=== PATIENT | female | born 1970 | race Caucasian/White ===

== ENCOUNTER → 2022-05-06 14:43 | Outpatient (BNVA) | payer OTHER, SELFPAY | PROVIDERS: PCP Internal Medicine; Visit Provider Nurse Practitioner Family | DX: M79.7 Fibromyalgia (principal); M19.012 Primary osteoarthritis, left shoulder; R76.8 Other specified abnormal immunological findings in serum; L85.3 Xerosis cutis | CPT/HCPCS: 99212 ==

== ENCOUNTER 2022-10-28 09:10 | Outpatient (AMB) | payer OTHER, SELFPAY ==
[2022-10-28 09:13] VITALS: BP 116/74; PULSE 102; TEMP 36.3; O2SAT 95; BMI 38.3
--- NOTE | 2022-10-28 09:13 | A.OFFVIS_ITS ---
Intake Vital Signs 10/28/22 09:13 Height 5 ft 2 in Weight 209 lb 7.026 oz BMI 38.3 BP 116/74 Blood Pressure Location Rt brachial Position Sitting Pulse 102 H Pulse Source Pulse Oximeter Temp 97.3 F Temp Source Skin Pulse Oximetry (%) 95 Intake Visit Reasons: fibromyalgia Intake Note: Pt seen today for FM follow up. States she has pain everywhere Curing Room Worker Required: No Accompanied by: Daughter Allergies glipizide Allergy (Intermediate, Verified 10/28/22 09:21) low blood sugar pregabalin [From Lyrica] Allergy (Intermediate, Verified 10/28/22 09:21) Irritable Medication List - Last Reconciled 10/28/22 by Errol Roach MD amitriptyline 25 mg PO BEDTIME atorvastatin 10 mg PO DAILY carvedilol 12.5 mg PO BID cholecalciferol (vitamin D3) 50 mcg PO DAILY citalopram 10 mg PO DAILY empagliflozin (Jardiance) 25 mg PO DAILY hydroxyzine HCl 25 mg PO BID PRN ibuprofen 600 mg PO Q8H PRN metformin ER 500 mg PO BID tirzepatide (Mounjaro) mg subcut valsartan 160 mg PO DAILY HPI HPI Comments History of Present Illness Details This is a 51-year-old female who presents for evaluation of positive KIA. She was previously evaluated by Maya Dailey and Dr. Chilel for a positive KIA in the setting of diffuse pain. There was no evidence of an autoimmune rheumatic disease. Sub serologies were negative. Patient states that she has diffuse pain everywhere. Pain in her shoulders, neck, back, chest, legs. She has pain, swelling and stiffness of both hands lasting 1 hour in the morning. She has a constant skin rash on her arms and forearms bilaterally, worse on the left. It is worse when exposed to sun. But it is present even in wintertime. She applies sunscreen all the time. Gets some hair loss. Denies any blood or frothy urine. Three days ago she developed a diffuse itchy skin rash on her lower extremities which resolved with Benadryl. [facility] Medical History (Updated 10/28/22 @ 10:03 by Errol Roach MD) Myositis SLE (systemic lupus erythematosus) Dry skin dermatitis Diabetes Hypertension Hyperlipemia Morbid obesity DJD (degenerative joint disease), lumbar GERD (gastroesophageal reflux disease) Abnormal large bowel motility Swallowing difficulty Globus sensation Fatty liver Hepatomegaly Palpitations SOB (shortness of breath) Fibromyalgia Surgical History H/O: hysterectomy History of cholecystectomy History of Family History Mother Breast cancer Diabetes Hypertension Anxiety and depression Fibromyalgia Thyroid cancer Social History Alcohol intake: current Alcohol intake frequency: does not drink Patient Tobacco Use Status: Never used Tobacco Review of Systems Const Reports fatigue and Reports weakness Musc Reports myalgias, Reports arthralgias, Reports joint swelling and Reports stiffness Skin/Breast Reports dry skin, Reports alopecia, Reports pruritus, Reports erythema and R eports rash Neuro Reports weakness Endo Reports fatigue Physical Exam Vital Signs: Last Vital Signs Temp 97.3 F 10/28/22 09:13 Pulse 102 H 10/28/22 09:13 BP 116/74 10/28/22 09:13 Pulse Ox 95 10/28/22 09:13 BMI result Body Mass Index 38.3 Const General: cooperative, healthy appearing and comfortable Nutritional Appearance: obese Orientation/consciousness: patient oriented x3 Limitations: no limitations HEENT Head: Yes normocephalic and Yes atraumatic Mouth: moist mucous membranes Resp Effort & Inspection: normal respiratory effort and able to speak in complete sentences Auscultation: clear to auscultation bilaterally Cardio Rate: regular rate Rhythm: regular rhythm GI Inspection: No distended Palpation (GI): Soft to palpation and nontender Skin Other: Erythematous skin rash on the extensor surface of right arm and forearm, more severe in the left arm Neuro General: patient oriented x3 Extrem Other: Diffuse fibromyalgia tender points Tenderness and pain in both wrists, MCPs and PIPs. No D IP pain. Normal nailfold capillaroscopy Bilateral trochanter bursa written Results Reviewed Results Reviewed: Labs [id number] CCP negative KIA 1-320 homogeneous 1:640 homogenous Anti Spears/HEEL ROOM SUPERVISOR SSA/SSB/dsDNA/AMA/RF/Scl 70/TPO all negative? Lyme screen negative? Anti parietal cell antibody 35 (<20) Anti smooth muscle antibody negative? C3/C4 negative CRP normal Assessment & Plan Assessment & Plan (1) Elevated antinuclear antibody (KIA) level: Code(s): R76.8 - Other specified abnormal immunological findings in serum Plan: This is a 51-year-old female who presents for evaluation of a positive KIA. Previous evaluation was unrevealing. Will repeat comprehensive serology to screen for underlying autoimmune rheumatic disease. Will also add a myositis panel. (2) Fibromyalgia: Code(s): M79.7 - Fibromyalgia Plan: Will discuss further next visit (3) Rash and nonspecific skin eruption: Code(s): R21 - Rash and other nonspecific skin eruption Plan: Advised patient to get evaluated by a software engineer backend. Consider a skin biopsy. Plan I spent 46 minutes reviewing patient's chart, evaluating patient, ordering diagnostic workup, counseling patient and documenting in the chart Orders: Orders Complete Blood Count Auto Diff Today M32.9 - Systemic lupus erythematosus, unspecified Comprehensive Met. Panel Today M32.9 - Systemic lupus erythematosus, unspecified C Reactive Protein Today M32.9 - Systemic lupus erythematosus, unspecified Immunofixation Pnl, Serum Today M32.9 - Systemic lupus erythematosus, unspecified Protein Electrophoresis, Serum Today M32.9 - Systemic lupus erythematosus, unspecified Complement C3 Today M32.9 - Systemic lupus erythematosus, unspecified Protein Creatinine Ratio, Ur Today M32.9 - Systemic lupus erythematosus, unspecified UA w Microscopic Today M32.9 - Systemic lupus erythematosus, unspecified MSA Panel Extended Today M60.9 - Myositis, unspecified Erythrocyte Sedimentation Rate Today M32.9 - Systemic lupus erythematosus, unspecified Anti Extractable Nuclear Ag Today M32.9 - Systemic lupus erythematosus, unspecified Anti DNA DS Antibody Today M32.9 - Systemic lupus erythematosus, unspecified Sjogren's Antibodies Today M32.9 - Systemic lupus erythematosus, unspecified Coding Level of Care Code Est Pt Level 5 (44680) Diagnoses Elevated antinuclear antibody (KIA) level R76.8 Fibromyalgia M79.7 Rash and nonspecific skin eruption R21
== END 2022-10-28 09:53 | disposition home or self-care (01) ==
PROVIDERS: PCP Internal Medicine; Referring Provider Internal Medicine; Visit Provider Student in an Organized Health Care Education/Training Program
DX: M79.7 Fibromyalgia (principal); R76.8 Other specified abnormal immunological findings in serum; R21 Rash and other nonspecific skin eruption
CPT/HCPCS: 99215

== ENCOUNTER → 2022-10-28 09:10 | Outpatient (BNVA) | payer OTHER, SELFPAY | PROVIDERS: PCP Internal Medicine; Referring Provider Internal Medicine; Visit Provider Student in an Organized Health Care Education/Training Program | DX: R76.8 Other specified abnormal immunological findings in serum (principal); M79.7 Fibromyalgia; R21 Rash and other nonspecific skin eruption | CPT/HCPCS: 99212 ==

== ENCOUNTER 2022-12-02 11:05 | Outpatient (REF) | payer OTHER, SELFPAY ==
[2022-12-02 13:04] LABS: MANUAL DIFF FLAG NO
[2022-12-02 13:26] LABS: Basophils Absolute Auto 0.1 X10*3/uL (0.0-0.2); Basophils Percent Auto 0.8 % (0-2); Eosinophils Absolute Auto 0.5 X10*3/uL (0.0-0.4); Eosinophils Percent Auto 6.6 % (0-4); Hematocrit 46.5 % (37.0-47.0); Imm Gran Abs Auto 0.01 X10*3/uL (0.00-0.03); Imm Gran Pct Auto 0.1 % (0.0-0.4); Lymphocytes Absolute Auto 1.8 X10*3/uL (1.2-4.9); Lymphocytes Percent Auto 24.3 % (20-40); Mean Corpuscular HGB Conc 32.3 g/dl (31.0-35.0); Mean Corpuscular Hemoglobin 28.5 pg (27.0-33.0); Mean Corpuscular Volume 88.2 fL (80.0-98.0); Mean Platelet Volume 10.2 fL (9.4-12.3); Monocytes Absolute Auto 0.5 X10*3/uL (0.1-1.2); Monocytes Percent Auto 6.5 % (2-11); Neutrophils Absolute Auto 4.7 x10*3/uL (2.0-8.3); Neutrophils Percent Auto 61.7 % (45-73); Platelet Count 334 X10*3/uL (160-400); Red Blood Count 5.27 X10*6/uL (4.20-5.50); Red Cell Distribution Width 14.3 % (11.0-16.0); White Blood Count 7.6 X10*3/uL (4.8-10.8)
[2022-12-02 13:29] LABS: Appearance Urine Cloudy; Color Urine Yellow; Glucose Urine UA >=1000 mg/dL (Negative); Leukocyte Esterase Urine Negative (Negative); Nitrite Urine Negative (Negative); Specific Gravity - Urine >= 1.030 (1.005-1.025); UMIC TRIGGER UA YES; Urine Blood Negative (Negative); Urine Ketones Negative (Negative); Urine Protein Negative (Neg-Trace)
[2022-12-02 13:33] LABS: Bacteria Urine 4+ (None Seen); Hyaline Casts Urine 0-2 /LPF (0-2); RBC Urine 0-2 /HPF (0-2); Squamous Epithelial Cell Urine >20 /HPF (0-2); WBC Urine 0-5 /HPF (0-5)
[2022-12-02 13:46] LABS: Alanine Aminotransferase 29 U/L (0-31); Albumin Level 4.3 g/dL (3.5-5.0); Alkaline Phosphatase 124 U/L (39-117); Anion Gap 15 (12-20); Aspartate Amino Transferase 21 U/L (5-31); Bilirubin Total 1.7 mg/dL (0.0-1.0); Blood Urea Nitrogen 13 mg/dL (9-16); C Reactive Protein 0.25 mg/dL (< or = 0.50); Calcium 9.5 mg/dL (8.4-10.2); Carbon Dioxide 20 mmol/L (22-29); Chloride 108 mmol/L (96-108); Estimated Glomerular Filt Rate > 60; Glucose Random 153 mg/dL (60-115); Sodium 139 mmol/L (135-145); Total Protein 7.3 g/dL (6.5-8.0)
[2022-12-02 14:07] LABS: Erythrocyte Sedimentation Rate 4 MM/HR (0-20)
[2022-12-02 14:11] LABS: Total Protein Urine Random < 7 mg/dL (<12)
[2022-12-03 11:19] LABS: Complement C3 187 mg/dL (83-193)
[2022-12-03 13:23] LABS: Anti DNA DS Antibody <1 IU/mL; Antibody to SS-A Antigen <1.0 NEG AI (<1.0 NEG); Antibody to SS-B Antigen <1.0 NEG AI (<1.0 NEG); SM/Ribonucleoprotein Ab <1.0 NEG AI (<1.0 NEG); Smith Protein <1.0 NEG AI (<1.0 NEG)
[2022-12-04 11:33] LABS: Prot Elec - Albumin 4.2 g/dL (3.8-4.8); Prot Elec - Alpha1 0.3 g/dL (0.2-0.3); Prot Elec - Alpha2 0.7 g/dL (0.5-0.9); Prot Elec - Beta 1 0.5 g/dL (0.4-0.6); Prot Elec - Beta 2 0.5 g/dL (0.2-0.5); Prot Elec - Gamma 0.9 g/dL (0.8-1.7)
[2022-12-06 09:34] LABS: IgA 271 mg/dL (47-310); IgG 970 mg/dL (600-1640); IgM 66 mg/dL (50-300)
[2022-12-12 17:59] LABS: Cytosolic 5'nuc 1A Ab IgG <5 Units; Ej Ab <11 SI (<11); HMGCR Ab IgG <2 CU (<20); Jo-1 Ab <11 SI (<11); MDA5 Ab <11 SI (<11); Mi-2 alpha Ab <11 SI (<11); Mi-2 beta Ab <11 SI (<11); NXP-2 (MJ) Ab <11 SI (<11); Oj Ab <11 SI (<11); Pl-12 Ab <11 SI (<11); Pl-7 Ab <11 SI (<11); SRP Ab <11 SI (<11); TIF1 gamma Ab <11 SI (<11)
== END 2022-12-02 11:06 | disposition home or self-care (01) ==
LOC: HO.HMGCLDS 11:05
PROVIDERS: PCP Internal Medicine; Visit Provider Student in an Organized Health Care Education/Training Program
DX: M32.9 Systemic lupus erythematosus, unspecified (principal)
CPT/HCPCS: 36415; 80053; 81001; 82570; 82784; 83516; 83520; 84156; 84165; 84182; 85025; 85652; 86140; 86160; 86225; 86235; 86334

== ENCOUNTER → 2022-12-03 11:29 | Outpatient (BNVA) | payer OTHER, SELFPAY | PROVIDERS: PCP Internal Medicine; Visit Provider Student in an Organized Health Care Education/Training Program ==

== ENCOUNTER 2022-12-24 11:27 | Outpatient (AMB) | payer OTHER, SELFPAY ==
[2022-12-24 11:40] VITALS: BP 120/62; PULSE 102; TEMP 36.8; O2SAT 95; BMI 37.3
--- NOTE | 2022-12-24 11:40 | MHC.OFFVIS ---
Intake Vital Signs 12/24/22 11:40 Height 5 ft 2 in Weight 203 lb 11.314 oz BMI 37.3 BP 120/62 Blood Pressure Location Rt brachial Position Sitting Pulse 102 H Pulse Source Pulse Oximeter Temp 98.2 F Temp Source Skin Pulse Oximetry (%) 95 Intake Visit Reasons: KIA +VE Intake Note: Pt presents today for follow up and test results. C/o increased pain, especially shoulders, arms, and knees. Mentions easy bruising everytime BP is taken. Automotive Project Engineer Required: Yes Automotive Project Engineer Name: Francisca [email or web address] Information Interpreted: clinical only Accompanied by: Self / Same As Patient Allergies glipizide Allergy (Intermediate, Verified 12/24/22 11:44) low blood sugar pregabalin [From Lyrica] Allergy (Intermediate, Verified 12/24/22 11:44) Irritable Medication List - Last Reconciled 12/24/22 by Errol Roach MD amitriptyline 25 mg PO BEDTIME atorvastatin 10 mg PO DAILY carvedilol 12.5 mg PO BID cholecalciferol (vitamin D3) 50 mcg PO DAILY citalopram 10 mg PO DAILY empagliflozin (Jardiance) 25 mg PO DAILY hydroxyzine HCl 25 mg PO BID PRN ibuprofen 600 mg PO Q8H PRN metformin ER 500 mg PO BID tirzepatide (Mounjaro) mg subcut valsartan 160 mg PO DAILY HPI HPI Comments History of Present Illness Details Patient returns for follow-up. States that for the last 2 weeks she has been having right elbow pain and left shoulder pain. Initial history: This is a 51-year-old female who presents for evaluation of positive KIA. She was previously evaluated by Maya Dailey and Dr. Chilel for a positive KIA in the setting of diffuse pain. There was no evidence of an autoimmune rheumatic disease. Sub serologies were negative. Patient states that she has diffuse pain everywhere. Pain in her shoulders, neck, back, chest, legs. She has pain, swelling and stiffness of both hands lasting 1 hour in the morning. She has a constant skin rash on her arms and forearms bilaterally, worse on the left. It is worse when exposed to sun. But it is present even in wintertime. She applies sunscreen all the time. Gets some hair loss. Denies any blood or frothy urine. Three days ago she developed a diffuse itchy skin rash on her lower extremities which resolved with Benadryl. [facility] Medical History (Updated 12/24/22 @ 12:14 by Errol Roach MD) Dry skin dermatitis Diabetes Hypertension Hyperlipemia Morbid obesity DJD (degenerative joint disease), lumbar GERD (gastroesophageal reflux disease) Abnormal large bowel motility Swallowing difficulty Globus sensation Fatty liver Hepatomegaly Palpitations SOB (shortness of breath) Fibromyalgia Surgical History S/P thyroid biopsy H/O: hysterectomy History of cholecystectomy History of Family History Mother Breast cancer Diabetes Hypertension Anxiety and depression Fibromyalgia Thyroid cancer Father Alzheimer's dementia Social History Household Members: Spouse Alcohol intake: current Alcohol intake frequency: does not drink Patient Tobacco Use Status: Never used Tobacco Review of Systems Const Reports fatigue and Reports weakness Musc Reports myalgias and Reports arthralgias Skin/Breast Reports dry skin, Reports pruritus and Reports rash Neuro Reports weakness Endo Reports fatigue Physical Exam Vital Signs: Last Vital Signs Temp 98.2 F 12/24/22 11:40 Pulse 102 H 12/24/22 11:40 BP 120/62 12/24/22 11:40 Pulse Ox 95 12/24/22 11:40 BMI result Body Mass Index 37.3 Const General: cooperative, healthy appearing and comfortable Nutritional Appearance: obese Orientation/consciousness: patient oriented x3 Limitations: no limitations HEENT Head: Yes normocephalic and Yes atraumatic Mouth: moist mucous membranes Resp Effort & Inspection: normal respiratory effort and able to speak in complete sentences Skin Other: Erythematous skin rash on the extensor surface of right arm and forearm, more severe in the left arm Neuro General: patient oriented x3 Extrem Other: Diffuse fibromyalgia tender points Tenderness and pain in both wrists, MCPs and PIPs. 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 Lyme screen negative? Anti parietal cell antibody 35 (<20) Anti smooth muscle antibody negative? C3/C4 negative CRP normal Assessment & Plan Assessment & Plan (1) Elevated antinuclear antibody (KIA) level: Code(s): R76.8 - Other specified abnormal immunological findings in serum Plan: This is a 51-year-old female who presents for evaluation of a positive KIA. Upon evaluation I do not see any signs of an autoimmune rheumatic disease. Comprehensive serology was unrevealing. (2) Right tennis elbow: Code(s): M77.11 - Lateral epicondylitis, right elbow Plan: Referred to occupational therapy (3) Greater trochanteric bursitis of right hip: Code(s): M70.61 - Trochanteric bursitis, right hip Plan: Referred to PT (4) Tendinopathy of left rotator cuff: Code(s): M67.912 - Unspecified disorder of synovium and tendon, left shoulder Plan: Referred to PT Plan I spent 26 minutes reviewing patient's chart, evaluating patient, placing orders, counseling patient and documenting in the chart Orders: Orders OT Evaluation and Treatment Today M77.11 - Lateral epicondylitis, right elbow PT Evaluation and Treatment Today M67.912 - Unspecified disorder of synovium and tendon, left shoulder, M70.61 - Trochanteric bursitis, right hip Coding Level of Care Code Est Pt Level 4 (33973) Diagnoses Elevated antinuclear antibody (KIA) level R76.8 Right tennis elbow M77.11 Greater trochanteric bursitis of right hip M70.61 Tendinopathy of left rotator cuff M67.912
== END 2022-12-24 12:13 | disposition home or self-care (01) ==
PROVIDERS: PCP Internal Medicine; Visit Provider Student in an Organized Health Care Education/Training Program
DX: R76.8 Other specified abnormal immunological findings in serum (principal); M77.11 Lateral epicondylitis, right elbow; M70.61 Trochanteric bursitis, right hip; M67.912 Unspecified disorder of synovium and tendon, left shoulder
CPT/HCPCS: 99214

== ENCOUNTER → 2022-12-24 11:27 | Outpatient (BNVA) | payer OTHER, SELFPAY | PROVIDERS: PCP Internal Medicine; Visit Provider Student in an Organized Health Care Education/Training Program | DX: M77.11 Lateral epicondylitis, right elbow (principal); M70.61 Trochanteric bursitis, right hip; M67.912 Unspecified disorder of synovium and tendon, left shoulder; R76.8 Other specified abnormal immunological findings in serum | CPT/HCPCS: 99212 ==

== ENCOUNTER 2025-01-07 07:54 | Outpatient (AMB) | payer OTHER, SELFPAY ==
--- OUTSIDE RECORDS SUMMARY | 2025-01-06 11:15 | XMS_ITS | Encounter Summary ---
Author Organization [employer] Address [address] [place] [address] Care Team Providers Care Rn New Graduate Name Role Phone Akanksha Oh MD Primary Care Provider [phone] Reason for Referral * Consultation (Routine) - Authorized Specialty Diagnoses / Procedures Referred By Contact Referred To Contact Podiatry / Orthopaedic Surgery Diagnoses Type 2 diabetes mellitus with other kidney complication, unspecified whether flat spring assembler insulin use (CMS/HCC V24, CMS/HCC V28) Salud Vasquez PA [address] [place] [address] Phone: tel: fax: Ricky Santa DPVidal [address] [address] Phone: tel: fax: Referral ID Status Reason Start Date Expiration Date Visits Requested Visits Authorized [id number] Authorized Specialty Services Required 01/06/2026 1 1 * Medications - Pending Review Specialty Diagnoses / Procedures Referred By Contkeeley t Referred To Contact Diagnoses Type 2 diabetes mellitus with other kidney complication, unspecified whether fci insulin use (CMS/HCC V24, CMS/[facility] V28) Salud Vasquez PA [address] [place] [address] Phone: tel: fax: Referral ID Status Reason Start Date Expiration Date V isits Requested Visits Authorized [id number] Pending Review 1 1 Reason for Visit * Reason Comments Diabetes Mellitus Encounter Details Date Type Department Care Team (Late st Contact Info) Description 01/06/2025 11:15 AM EST Office Visit Endocrinology - [place] [address], [place] [phone] Salud Vasquez PA [address] [place] [address] Type 2 diabetes mellitus with other kidney complication, unspecified whether fci insulin use ([facility] V24, [facility] V28) (Primary Dx); Primary hypertension; Hyperlipidemia, unspecified hyperlipidemia type; Type 2 diabetes mellitus with diabetic microalbuminuria, with long-term current use of insulin ([facility] V24, [facility] V28) Social History Tobacco Use Types Packs/Day Years Used Date Smoking Tobacco: Never Smokeless Tobacco: Never Tobacco Cessation:Counseling Given: Not Answered Alcohol Use Standard Drinks/Week Comments No 0 (1 standard drink = 0.6 oz pur e alcohol) Comments No Sex and Gender Information Value Date Recorded Sex Assigned at Not on file Legal Sex Female 12:37 PM EST Gender Identity Not on file Sexual Orientation Not on file documented as of this encounter Last Filed Vital Signs Vital Sign Reading Time Taken Comments Blood Pressure 95/67 01/06/2025 11:13 AM EST Pulse 92 01/06/2025 11:13 AM EST Temperature 36.4 C (97.5 F) 01/06/2025 11:13 AM EST Respiratory Rate - - Oxygen Saturation - - Inhaled Oxygen Concentration - - Weight 92.2 kg (203 lb 3.2 oz) 01/06/2025 11:13 AM EST Height 157.5 cm (5' 2 ) 01/06/2025 11:13 AM EST Body Mass Index 37.17 01/06/2025 11:13 AM EST documented in this encounter Ordered Prescriptions Prescription Sig Dispense Quantity Refills Last Filled Start Date End Date tirzepatide (Mounjaro) 15 mg/0.5 mL injectionIndication s:Type 2 diabetes mellitus with other kidney complication, unspecified whether fci insulin use ([facility] V24, [facility] V28) Inject 0.5 mL (15 mg total) under the skin every 7 (seven) days. 2 mL 11 01/06/2025 documented in this encounter Progress Notes * Fatou Bonner MA - 01/06/2025 11:15 AM EST Visit Vitals BP 95/67 (BP Location: Left arm, Patient Position: Sitting, BP Cuff Size: Large adult) Pulse 92 Temp 36.4 ??C (97.5 ??F) (Temporal) Ht 1.575 m (62 ) Wt 92.2 kg (203 lb 3.2 oz) BMI 37.17 kg/m?? OB Status Hysterectomy Smoking Status Never BSA 1.92 m?? If blood pressure is greater than 140/90 was average BP completed? N/A Medication list reviewed and refills pended: Yes Blood sugar: FSBS: Lab Results Component Value Date GLUCOSE 135 01/06/2025 . Is sugar <70 or > 400? No. Is patient on CGM? No. .If yes, please update blue sticky note with DME or pharmacy information. Are labs up to date? no Foot Exam Due: no Eye Exam Due: no * LIBBY Justin - 01/06/2025 11:15 AM EST CHIEF COMPLAINT: Diabetes Mellitus IDENTIFIER: Terese Fan is a 54 y.o. old female. HPI: Patient presents for diabetes follow-up. Past medical history of type 2 diabetes, obesity, hypertension, hyperlipidemia, hepatomegaly, GERD, fibromyalgia, fatty liver disease, DJD, anxiety and depression. Diabetes: Hemoglobin A1c: Lab Results Component Value Date HGBA1C 7.1 (H) 09/30/2024 HGBA1C 6.9 (H) 04/22/2024 HGBA1C 7.0 (A) 09/19/2023 Due for lab work At goal. Blood sugar in the office 135 States blood sugars have been in the low 100s Admits she has an appointment coming up with weight management Dm medications: Currently on metformin 500 mg twice a day On Jardiance 25 mg, Mounjaro 15 mg Glyburide discontinued. History of microalbuminuria. On losartan and Jardiance. Thyroid nodules: Multinodular goiter. Biopsy was done with benign results. She has seen surgeon. Surgery was not recommended This was ordered earlier in the year to be rechecked next year Hypertension: Valsartan 160 MGs, Metroprolol 100 mg twice a day and . Blood pressure 95/67 Hyperlipidemia: Last LDL normal. She is on fenofibrate 48 mg and atorvastatin 10 mg Obesity: Wt Readings from Last 3 Encounters: 01/06/25 92.2 kg (203 lb 3.2 oz) 10/29/24 92.1 kg (203 lb) 09/30/24 93.9 kg (207 lb) ROS: GENERAL: No malaise, significant weight loss or fever HEENT: No changes in hearing or vision, nose bleeds or other nasal problems RESPIRATORY: No cough, wheezing or shortness of breath CARDIOVASCULAR: No chest pain, leg swelling or palpitations GI: No abdominal discomfort, blood in stools or black stools ENDOCRINE: See HPI MUSCULOSKELETAL: No joint pain or swelling, back pain, or muscle pain. NEURO: No persistent headache, syncope, seizures, weakness or numbness PAST MEDICAL HISTORY: Patient Active Problem List Diagnosis Date Noted Type II diabetes mellitus with renal manifestations ([facility] V24, [facility] V28) 12/03/2023 Swallowing difficulty 12/03/2023 Primary hypertension 12/03/2023 Hyperlipidemia 12/03/2023 Globus sensation 12/03/2023 GERD (gastroesophageal reflux disease) 12/03/2023 Fibromyalgia 12/03/2023 Elevated liver enzymes 12/03/2023 Early satiety 12/03/2023 Abnormal large bowel motility 12/03/2023 Anxiety and depression 12/03/2023 Morbid obesity with BMI of 40.0-44.9, adult ([facility] V24, [facility] V28) 12/03/2023 Nontoxic multinodular goiter 05/03/2022 Shortness of breath 05/01/2021 Palpitations 09/08/2020 Hepatomegaly 07/05/2020 Fatty liver 07/05/2020 Common bile duct dilatation 07/05/2020 Elevated LFTs 06/20/2020 Microalbuminuria 05/05/2019 Distal radius fracture, left 02/26/2019 DJD (degenerative joint disease), lumbar 10/22/2018 Elevated antinuclear antibody (KIA) level 03/03/2018 SOCIAL HISTORY: Social History Tobacco Use Smoking status: Never Smokeless tobacco: Never Substance Use Topics Alcohol use: No FAMILY HISTORY: Family Status Relation Name Status Mother dx'd at age 62 Alive Father (Not Specified) MGM (Not Specified) MGF (Not Specified) PGF (Not Specified) Mother's patricia Alive Neg Hx (Not Specified) Sister Alive Brother Alive No partnership data on file Family History Problem Relation Name Age of Onset Diabetes Mother dx'd at age 62 Hypertension Mother dx'd at age 62 Depression Mother dx'd at age 62 Asthma Mother dx'd at age 62 Other (Other: fibromyalgia) Mother dx'd at age 62 Other (Other: thyroid ca) Mother dx'd at age 62 Nephrolithiasis Mother dx'd at age 62 Stroke Father Asthma Maternal Grandmother Other (Other: heart disease) Maternal Grandmother Diabetes Maternal Grandfather Stroke Paternal Grandfather Ovarian cancer Mother's side 47.00 Colon cancer Neg Hx Prostate cancer Neg Hx Pancreatic cancer Neg Hx Uterine cancer Neg Hx ACTIVE MEDICATIONS: Outpatient Medications Marked as Taking for the 01/06/25 encounter (Office Visit) with LIBBY Justin Medication Sig Dispense Refill amitriptyline (ELAVIL) 25 mg tablet TAKE 1 TABLET BY MOUTH TWICE A DAY 180 tablet 3 atorvastatin (LIPITOR) 10 mg tablet Take 1 tablet (10 mg total) by mouth at bedtime. at bedtime. 90tablet 3 citalopram (CeleXA) 10 mg tablet Take 1 Tablet by mouth daily. clotrimazole-betamethasone (LOTRISONE) 1-0.05 % cream Apply topically 2 (two) times a day. 30 g 1 cyclobenzaprine (FLEXERIL) 10 mg tablet Take 1 tablet (10 mg total) by mouth 3 (three) times a day if needed for muscle spasms. DULoxetine (CYMBALTA) [address] capsule TAKE 1 CAPSULE (20 MG TOTAL) BY MOUTH 2 (TWO) TIMES A DAY. DO NOT CRUSH OR CHEW. 180 capsule 1 empagliflozin (Jardiance) 25 mg tablet Take 1 tablet (25 mg total) by mouth 1 (one) time each day. 90 tablet 3 fenofibrate (TRICOR) 48 mg tablet TAKE 1 TABLET (48 MG TOTAL) BY MOUTH 1 TIME EACH DAY 90 tablet 3 FLUoxetine (PROzac) 20 mg capsule Take 1 capsule (20 mg total) by mouth 1 (one) time each day. hydrOXYzine HCL (ATARAX) 25 mg tablet Take 1 tablet (25 mg total) by mouth 2 (two) times a day if needed for itching. 60 tablet 2 ibuprofen (ADVIL,MOTRIN) 800 mg tablet Take 1 tablet (800 mg total) by mouth 3 (three) times a day if needed for moderate pain (pain). Take with food. 180 tablet 3 LORazepam (ATIVAN) 1 mg tablet Take 1 tablet (1 mg total) by mouth every 8 (eight) hours if needed. metFORMIN XR (GLUCOPHAGE-XR) 500 mg 24 hr tablet Take 1 tablet (500 mg total) by mouth 2 (two) times a day before meals. 180 tablet 1 metoprolol tartrate (LOPRESSOR) 100 mg tablet Take 1 tablet (100 mg total) by mouth 2 (two) times aday. 180 each 3 naproxen (EC NAPROSYN) 500 mg EC tablet Take 1 tablet (500 mg total) by mouth 2 (two) times a day if needed for mild pain. Do not crush, chew, or split. Take with food. 60 tablet 11 SUMAtriptan (IMITREX) 25 mg tablet Take 1 tablet (25 mg total) by mouth 1 (one) time if needed for migraine. May repeat dose once in 2 hours if no relief. Do not exceed 2 doses in 24 hours. 9 tablet 5 tirzepatide (Mounjaro) 15 mg/0.5 mL injection Inject 0.5 mL (15 mg total) under the skin every 7 (seven) days. 2 mL 11 valsartan (DIOVAN) 160 mg tablet Take 1 tablet (160 mg total) by mouth 1 (one) time each day. 90 tablet 2 [DISCONTINUED] Mounjaro 15 mg/0.5 mL injection INJECT 15 MG INTO THE SKIN EVERY 7 DAYS. 2 mL 5 ALLERGIES: Glipizide, Pregabalin, and Lisinopril PHYSICAL EXAM: Blood pressure 95/67, pulse 92, temperature 36.4 ??C (97.5 ??F), temperature source Temporal, height 1.575 m (62 ), weight 92.2 kg (203 lb 3.2 oz). Body mass index is 37.17 kg/m??. Plan is deferred until next visit APPEARANCE: Alert and in no acute distress SKIN: Skin color, texture, turgor normal. No rashes or lesions. NEURO: AAOx3. LABS: Lab Results Component Value Date HGBA1C 7.1 (H) 09/30/2024 CHOL 194 04/22/2024 LDL 63 03/11/2023 HDL 65 04/22/2024 TRIG 175 (H) 04/22/2024 Lab Results Component Value Date GLUCOSE 135 01/06/2025 Lab Results Component Value Date TSH 1.11 04/22/2024 IMAGING: IMPRESSION: 1. Type 2 diabetes mellitus with other kidney complication, unspecified whether flat spring assembler insulin use ([facility] V24, [facility] V28) 2. Primary hypertension 3. Hyperlipidemia, unspecified hyperlipidemia type 4. Type 2 diabetes mellitus with diabetic microalbuminuria, with long-term current use of insulin ([facility] V24, [facility] V28) PLAN: Patient presents to the office for follow-up on diabetes follow-up 1. Diabetes: Due for blood work. Blood sugars appear to be at goal. Continue with current regimen Continue with lifestyle modification 2. Hypertension: Blood pressure at goal. Continue with current blood pressure lowering medications 3. Hyperlipidemia: Continue atorvastatin Myself and my colleagues maintained a long-term, longitudinal relationship with this patient, overseeing care of chronic conditions including diabetes, hyperlipidemia and hypertension. This care relationship has significantly influence my decision making and treatment plans during today's encounter. All questions and concerns were addressed. Patient understands and agrees with this treatment plan.Patient was reminded to call or return to the office if any new or existing problems arise This document was made using voice recognition software. It may contain some errors in grammar or syntax Medication and lab orders: Type 2 diabetes mellitus with other kidney complication, unspecified whether fci insulin use ([facility] V24, [facility] V28) (Primary) - POC glucose manually resulted - Hemoglobin A1c; Future - tirzepatide (Mounjaro) 15 mg/0.5 mL injection; Inject 0.5 mL (15 mg total) under the skin every 7(seven) days. Dispense: 2 mL; Refill: 11 - Ambulatory referral to Podiatry; Future Primary hypertension Hyperlipidemia, unspecified hyperlipidemia type Type 2 diabetes mellitus with diabetic microalbuminuria, with long-term current use of insulin ([facility] V24, [facility] V28) LIBBY Justin on 01/06/2025 at 1:32 PM EST documented in this encounter Plan of Treatment Upcoming Encounters Date Type Department Care Team (Late st Contact Info) Description 02/03/2025 11:00 AM EST Appointment Radiology Department - [address] [phone] 05/02/2025 11:00 AM EDT Office Visit Internal Medicine [address] [place] [address] Akanksha Oh MD [address] [place] [phone] 08/03/2025 10:45 AM EDT Office Visit Endocrinology - [address] [phone] Salud Vasquez PA [address] [place] [phone] Scheduled Referrals Name Type Priority Associated Diagnoses Order Schedule Ambulatory referral to Podiatry Outpatient Referral Routine Type 2 diabetes mellitus with other kidney complication, unspecified whether fci insulin use ([facility] V24, [facility] V28) 1 Occurrences starting 01/06/2025 until 01/06/2026 documented as of this encounter Procedures Procedure Name Priority Date/Time Associated Diagnosis Comments POC GLUCOSE Routine 01/06/2025 11:14 AM EST Type 2 diabetes mellitus with other kidney complication, unspecified whether fci insulin use ([facility] V24, [facility] V28) documented in this encounter Results * (ABNORMAL) Hemoglobin A1c (01/06/2025 11:59 AM EST) Hemoglobin A1C 7.2(H) <6.5 % LAB CHEMISTRY METHOD 01/06/2025 9:17 PM EST [facility] Mean Bld Glu Estim. 160 mg/dL LAB CHEMISTRY METHOD 01/06/2025 9:17 PM EST [facility] Blood Venous blood specimen / Unknown Venipuncture / Unknown 01/06/2025 11:59 AM EST 01/06/2025 11:59 AM EST us Salud SOUZA LAB BLOOD ORDERABLES Final Result [facility] [address] [place] [address], [place] [phone] * POC glucose manually resulted (01/06/2025 11:14 AM EST) Glucose POC 135 mg/dL Blood Capillary blood specimen / Unknown 01/06/2025 11:14 AM EST Salud SOUZA POINT OF CARE TEST ENTER/ED IT ORDERABLES Final Result documented in this encounter Visit Diagnoses Diagnosis Type 2 diabetes mellitus with other kidney complication, unspecified whether fci insulin use ([facility] V24, [facility] V28)- Primary Primary hypertension Unspecified essential hypertension Hyperlipidemia, unspecified hyperlipidemia type Type 2 diabetes mellitus with diabetic microalbuminuria, with long-term current use of insulin ([facility] V24, [facility] V28) documented in this encounter Discontinued Medications Medication Sig Discontinue Reason Start Date End Da te Mounjaro 15 mg/0.5 mL injection INJECT 15 MG INTO THE SKIN EVERY 7 DAYS. Reorder 08/17/2024 01/06/2025 documented as of this encounter Historical Medications * This list may reflect changes made after this encounter. cyclobenzaprine (FLEXERIL) 10 mg tablet Take 1 tablet (10 mg total) by mouth 3 (three) times a day if needed for muscle spasms. 10/29/2024 added in this encounter Care Teams Rn New Graduate Relationship Specialty Start Date End Date Akanksha Oh MD [address] [phone] PCP - General Internal Medicine 02/01/21 documented as of this encounter
--- OUTSIDE RECORDS SUMMARY | 2025-01-06 11:55 | XMS_ITS | Encounter Summary ---
Author Organization [employer] Address [address] [place] [address] Care Team Providers Care Music Engineer Name Role Phone Akanksha Oh MD Primary Care Provider [phone] Encounter Details Date Type Department Care Team (Late Contact Info) Description 01/06/2025 11:55 AM EST Lab Draw Station - [address] Type 2 diabetes mellitus with other kidney complication, unspecified whether usp insulin use (CMS/HCC V24, CMS/HCC V28); Type 2 diabetes mellitus with diabetic microalbuminuria, without long-term current use of insulin (CMS/HCC V24, CMS/HCC V28); Hyperlipidemia, unspecified hyperlipidemia type; Fatty liver Social History Tobacco Use Types Packs/Day Years Used Date Smoking Tobacco: Never Smokeless Tobacco: Never Alcohol Use Standard Drinks/Week Comments No 0 (1 standard drink = 0.6 oz pur e alcohol) Comments No Sex and Gender Information Value Date Recorded Sex Assigned at Not on file Legal Sex Female 12:37 PM EST Gender Identity Not on file Sexual Orientation Not on file documented as of this encounter Plan of Treatment Upcoming Encounters Date Type Department Care Team ([facility] Contact Info) Description 02/03/2025 11:00 AM EST Appointment Radiology Department - [address] [phone] 05/02/2025 11:00 AM EDT Office Visit Internal Medicine - [place] [address] [place] [phone] Akanksha Oh MD [address] [place] [address] 08/03/2025 10:45 AM EDT Office Visit Endocrinology [place] [id number] [place] [address] Salud Vasquez PA [address] [place] [address] documented as of this encounter Procedures Procedure Name Priority Date/Time Associated Diagnosis Comments VITAMIN D 25 HYDROXY Routine 01/06/2025 11:59 AM EST Type 2 diabetes mellitus with diabetic microalbuminuria, without long-term current use of insulin ([facility] V24, [facility] V28) Hyperlipidemia, unspecified hyperlipidemia type Fatty liver COMPLETE BLOOD COUNT Routine 01/06/2025 11:59 AM EST Type 2 diabetes mellitus with diabetic microalbuminuria, without long-term current use of insulin ([facility] V24, [facility] V28) Hyperlipidemia, unspecified hyperlipidemia type Fatty liver HEMOGLOBIN A1C Routine 01/06/2025 11:59 AM EST Type 2 diabetes mellitus with other kidney complication, unspecified whether termite inspector insulin use ([facility] V24, [facility] V28) COMPREHENSIVE METABOLIC PANEL Routine 01/06/2025 11:59 AM EST Type 2 diabetes mellitus with diabetic microalbuminuria, without long-term current use of insulin ([facility] V24, CMS/HCC V28) Hyperlipidemia, unspecified hyperlipidemia type Fatty liver documented in this encounter Results * (ABNORMAL) Comprehensive metabolic panel (01/06/2025 11:59 AM EST) Sodium 143 133 - 145 mmol/L 01/06/2025 3:39 PM EST [facility] Potassium 4.4 3.5 - 5.5 mmol/L 01/06/2025 3:39 PM EST [facility] Chloride 105 96 - 110 mmol/L 01/06/2025 3:39 PM [facility] CO2 26 21 - 32 mmol/L 01/06/2025 3:39 PM [facility] Anion Gap 12(H) 3 - 11 01/06/2025 3:39 PM [facility] Glucose 118(H) 70 - 100 mg/dL 01/06/2025 3:39 PM [facility] BUN 17 5 - 25 mg/dL 01/06/2025 3:39 PM [facility] Creatinine 0.70 0.50 - 1.10 mg/dL 01/06/2025 3:39 PM [facility] eGFR 102 >=60 mL/min/1. 73m2 01/06/2025 3:39 PM [facility] Comment:Calculation based on the Chronic Kidney Disease Epidemiology Collaboration (CKD-EPI) equation refit without adjustment for race. BUN/Creatinine Ratio 24.3 01/06/2025 3:39 PM [facility] Calcium 9.2 8.5 - 10.5 mg/dL 01/06/2025 3:39 PM [facility] AST (SGOT) 22 10 - 42 unit/L 01/06/2025 3:39 PM [facility] ALT (SGPT) 25 10 - 60 unit/L 01/06/2025 3:39 PM [facility] Alkaline Phosphatase 112 42 - 121 unit/L 01/06/2025 3:39 PM [facility] Total Protein 6.8 6.0 - 8.0 g/dL 01/06/2025 3:39 PM [facility] Albumin 4.4 3.2 - 5.0 g/dL 01/06/2025 3:39 PM [facility] Total Bilirubin 1.0 0.0 - 1.4 mg/dL 01/06/2025 3:39 PM [facility] Blood Venous blood specimen / Unknown Venipuncture / Unknown 01/06/2025 11:59 AM EST 01/06/2025 11:59 AM EST us Akanksha Oh MD LAB BLOOD ORDERABLES Final Res ult [facility] [address] [place] [address], [place] [phone] * (ABNORMAL) Complete blood count (01/06/2025 11:59 AM EST) WBC 8.5 4.8 - 10.8 K/mcL LAB HEMETOLOGY METHOD 01/06/2025 3:03 PM [facility] RBC 5.30(H) 3.80 - 4.80 M/mcL LAB HEMETOLOGY METHOD 01/06/2025 3:03 PM [facility] Hemoglobin 14.8 11.5 - 16.0 g/dL LAB HEMETOLOGY METHOD 01/06/2025 3:03 PM [facility] Hematocrit 46.5 35.0 - 47.0 % LAB HEMETOLOGY METHOD 01/06/2025 3:03 PM [facility] MCV 88.4 79.0 - 98.0 FL LAB HEMETOLOGY METHOD 01/06/2025 3:03 PM [facility] MCH 28.1 27.0 - 32.0 pcg LAB HEMETOLOGY METHOD 01/06/2025 3:03 PM [facility] MCHC 31.8(L) 32.0 - 37.0 g/dL LAB HEMETOLOGY METHOD 01/06/2025 3:03 PM [facility] RDW 14.4 11.0 - 15.0 % LAB HEMETOLOGY METHOD 01/06/2025 3:03 PM [facility] Platelets 394 130 - 400 K/mcL LAB HEMETOLOGY METHOD 01/06/2025 3:03 PM [facility] MPV 9.7 7.0 - 11.0 FL LAB HEMETOLOGY METHOD 01/06/2025 3:03 PM [facility] NRBC 0.0 <1.0 % LAB HEMETOLOGY METHOD 01/06/2025 3:03 PM [facility] NRBC Absolute 0.00 <0.10 K/mcL LAB HEMETOLOGY METHOD 01/06/2025 3:03 PM [facility] Blood Venous blood specimen / Unknown Venipuncture / Unknown 01/06/2025 11:59 AM EST 01/06/2025 11:59 AM EST us Akanksha Oh MD LAB BLOOD ORDERABLES Final Res ult [facility] [address] [place] [address], * Vitamin D 25 hydroxy (01/06/2025 11:59 AM EST) [facility] Vit D, 25-Hydroxy 61.4 30.0 - 80.0 ng/mL 01/06/2025 3:39 PM [facility] Blood Venous blood specimen / Unknown Venipuncture / Unknown 01/06/2025 11:59 AM EST 01/06/2025 11:59 AM EST us Akanksha Oh MD LAB BLOOD ORDERABLES Final Res ult [facility] [address] [place] [address], [place] [phone] * (ABNORMAL) Hemoglobin A1c (01/06/2025 11:59 AM EST) Hemoglobin A1C 7.2(H) <6.5 % LAB CHEMISTRY METHOD 01/06/2025 9:17 PM EST [facility] Mean Bld Glu Estim. 160 mg/dL LAB CHEMISTRY METHOD 01/06/2025 9:17 PM EST [facility] Blood Venous blood specimen / Unknown Venipuncture / Unknown 01/06/2025 11:59 AM EST 01/06/2025 11:59 AM EST us Salud SOUZA LAB BLOOD ORDERABLES Final Result [facility] [address] [place] [address], documented in this encounter Visit Diagnoses Diagnosis Type 2 diabetes mellitus with other kidney complication, unspecified whether usp insulin use ([facility] V24, [facility] V28) Type 2 diabetes mellitus with diabetic microalbuminuria, without long-term current use of insulin ([facility] V24, [facility] V28) Hyperlipidemia, unspecified hyperlipidemia type Fatty liver Other chronic nonalcoholic liver disease documented in this encounter Care Teams Music Engineer Relationship Specialty Start Date End Date Akanksha Oh MD [address] [place] [phone] PCP - General Internal Medicine 02/01/21 documented as of this encounter
--- OUTSIDE RECORDS SUMMARY | 2025-01-07 07:58 | XMS_ITS | Encounter Summary ---
Author Organization [facility] Address [address] [place] [address] Phone Care Team Providers Care Preparatory Technician Name Role Phone Sid Redman MD Unavailable [phone] Mundo Garrido MD Unavailable Geoff Garrison MD Unavailable [phone]CS Unavailable [email or web address] Amina Alvarez MD Unavailable [phone] Viky Almaraz Primary Care Provider [phone] Encounter Details Date Type Department Care Team (Late st Contact Info) Description 01/28/2017 Ancillary Orders [facility] External Provider Virtual Department [address] [place] [address] Ilene Wright MD [address] [place] [address] [email or web address] Chest pain, unspecified type Social History Tobacco Use Types Packs/Day Years Used Date Smoking Tobacco: Never Assessed Comments Unknown Sex and Gender Information Value Date Recorded Sex Assigned at Not on file Legal Sex Female 9:36 PM EDT Gender Identity Not on file Sexual Orientation Not on file documented as of this encounter Plan of Treatment Not on file documented as of this encounter Results * Stress Test Exercise (01/30/2017 12:30 PM EST) Max BP Systolic 170 mmHg [facility] Max BP Diastolic 90 mmHg [employer] Max HR 150 BPM [facility] [facility] Resting HR 105 BPM [facility] [facility] Resting BP Systolic 140 mmHg [facility] [facility] [facility] Resting BP Diastolic 90 mmHg [facility] [facility] Peak METS 7.0 METS [employer] [facility] [facility] Peak HR 150 BPM [employer] [facility] [facility] Anatomical Region Laterality Modality Heart Other 01/30/2017 10:2 6 AM EST 01/30/2017 11:07 AM EST Narrative 02/10/2017 12:50 PM EST Stress Test Result The heart rate changed from 105 bpm at rest to 150 bpm at peak stress. The blood pressure changed from 140/90 mmHg at rest. The patient's functional capacity is 7.0 METS. Exercise Stress Test Report: Reason for termination: fatigue and chest pressure Summary: Resting ECG:SR HR 100 incomplete IVCD Functional capacity: Fair Heart rate response to exercise:Appropriate Blood pressure response to exercise:Normal resting-appropriate Chest pain: midsternal chest pressure 4/10 at peak exercise resolving with rest Arrhythmias:None ST-T changes:None Overall impression: Abnormal exercise stress test Conclusion: Terese Fan exercised for 5:23 Minutes on a standard Arthur protocol achieving 87% MPHR (150 BPM) And 7.00 METS. Test terminated due to fatigue Summary: 1. EKG: No EKG evidence of ischemia per criteria 2. Symptoms: Midsternal sternal chest pressure 4/10 at peak exercise resolving with rest 3. Exercise physiology: Normal heart rate and BP response to exercise. 02 sat 97% and stable throughout the procedure. Fair functional capacity for age noted 4. Arrhythmia:None Conclusion: Abnormal exercise stress test. No ischemic EKG changes. However, pt had Midsternal sternal chest pressure 4/10 at peak exercise resolving with rest suggestive of ischemia. Recommend nuclear stress test and this will be arranged through Dr. Rowell's office. Vital signs at baseline at time of discharge from the lab. EKG reviewed with Dr. Zapien. Miracle Dodge NP us Ilene Hui MD CV STRESS ORDERABL ES Final Result documented in this encounter Visit Diagnoses Diagnosis Chest pain, unspecified type Chest pain, unspecified type documented in this encounter Care Teams Preparatory Technician Relationship Specialty Start Date End Date Viky Almaraz PA [address] [place] [address] [place] [phone] PCP - General Hairspring Staker 01/27/17 Sid Redman MD [address] [place] [address] Historical LMR Provider 12/02/16 2 Mundo Garrido MD [address] [place] [address] [address] [place] [address] [email or web address] Historical LMR Provider 12/02/16 02/24/21 Geoff Garrison MD [address] [place] [address] [address] [place] [address] Historical LMR Provider 12/02/16 02/24/21 Elicia Hodge, [facility] Historical LMR Provider 12/02/16 02/24/21 Amina Alvarez MD [address] [place] [phone] Historical LMR Provider 12/02/16 2 documented as of this encounter Additional Source Comments The information contained in this document represents components of the legal health record. It is not the complete legal health record.[facility]
--- OUTSIDE RECORDS SUMMARY | 2025-01-07 07:58 | XMS_ITS | Encounter Summary ---
Author Organization [facility] Address [address] [place] [address] Phone Care Team Providers Care Flotation Operator Name Role Phone Sid Redman MD Unavailable [phone] Mundo Garrido MD Unavailable Geoff Garrison MD Unavailable [phone]CS Unavailable [email or web address] Amina Alvarez MD Unavailable [phone] Viky Almaraz Primary Care Provider [phone] Encounter Details Date Type Department Care Team (Late st Contact Info) Description 02/11/2017 Ancillary Orders Virtual Department [address] [place] [address] Viky Almaraz PA [address] [place] [phone] Chest pain, unspecified type Social History Tobacco [...] on file documented as of this encounter Visit Diagnoses Diagnosis Chest pain, unspecified type documented in this encounter Care Teams Flotation Operator Relationship Specialty Start Date End Date Viky Almaraz PA [address] [place] [phone] PCP - General Parachute Supervisor 01/27/17 Sid Redman MD [address] [place] [address] Historical LMR Provider 12/02/16 2 Mundo Garrido MD [address] [place] [address] [address] [place] [address] [email or web address] Historical LMR Provider 12/02/16 02/24/21 Geoff Garrison MD [address] [place] [address] [address] [place] [address] [email or web address] Historical LMR Provider 12/02/16 02/24/21 Elicia Hodge, RDCS [email or web address] Historical LMR Provider 12/02/16 02/24/21 Amina Alvarez MD [address] [place] [phone] Historical LMR Provider 12/02/16 2 documented as of this encounter Additional Source Comments The information contained in this document represents components of the legal health record. It is not the complete legal health record.[facility]
--- OUTSIDE RECORDS SUMMARY | 2025-01-07 07:58 | XMS_ITS | Clinical Summary ---
Author Organization [facility] Address [address] [place] [address] Phone Care Team Providers Care Television Analyzer Name Role Phone Viky Almaraz Primary Care Provider [phone] Medications FLUoxetine (PROZAC) 20 MG capsule Take 20 mg by mouth every morning. Active LOSARTAN POTASSIUM (LOSARTAN ORAL) Acti ve metFORMIN (GLUCOPHAGE) 500 MG tablet Take 500 mg by mouth 2 (two) times a day with meals. Active Social History Tobacco Use Types Packs/Day Years Used Date Smoking Tobacco: Never Assessed Comments Unknown Sex and Gender Information Value Date Recorded Sex Assigned at Not on file Legal Sex Female 9:36 PM EDT Gender Identity Not on file Sexual Orientation Not on file Last Filed Vital Signs Vital Sign Reading Time Taken Comments Blood Pressure 130/80 01/30/2017 11:04 AM EST Pulse - - Temperature - - Respiratory Rate - - Oxygen Saturation - - Inhaled Oxygen Concentration - - Weight 96.6 kg (213 lb) 09/13/2015 3:30 AM EDT Height 156.8 cm (5' 1.75 ) 09/13/2015 3:30 AM ED T Body Mass Index 39.27 09/13/2015 3:30 AM EDT Plan of Treatment Not on file Medical Devices Not on file Insurance HMO O O O O O O O O Care Teams Television Analyzer Relationship Specialty Start Date End Date Viky Almaraz PA [address] [place] [address] [place] [address] PCP - General Television Analyzer 01/27/17 Additional Source Comments The information contained in this document represents components of the legal health record. It is not the complete legal health record.[facility]
--- OUTSIDE RECORDS SUMMARY | 2025-01-07 07:58 | XMS_ITS | Encounter Summary ---
Author Organization [facility] Address [address] [place], [place] [phone] Phone Care Team Providers Care Business Sales Consultant Name Role Phone Sid Redman MD Unavailable [phone] Mundo Garrido MD Unavailable Geoff Garrison MD Unavailable [phone]CS Unavailable [email or web address] Amina Alvarez MD Unavailable [phone] Viky Almaraz Primary Care Provider [phone] Encounter Details Date Type Department Care Team (Late st Contact Info) Description 01/27/2017 Transcribe Orders [facility] Main [address] [place] [address] Ilene Wright MD [address] [place] [phone] [email or web address] Chest pain, unspecified type (Primary Dx) Social History Tobacco Use Types Packs/Day Years Used Date Smoking Tobacco: Never Assessed Comments Unknown Sex and Gender Information Value Date Recorded Sex Assigned at Not on file Legal Sex Female 9:36 PM EDT Gender Identity Not on file Sexual Orientation Not on file documented as of this encounter Plan of Treatment Not on file documented as of this encounter Procedures Procedure Name Priority Date/Time Associated Diagnosis Comments CBC STAT 01/27/2017 1:14 PM EST Chest pain, unspecified type TROPONIN STAT 01/27/2017 1:14 PM EST Chest pain, unspecified type BASIC METABOLIC PANEL (BMP) STAT 01/27/2017 1:14 PM EST Chest pain, unspecified type documented in this encounter Results * CBC (01/27/2017 1:14 PM EST) WBC 8.56 3.40 - 11.20 K/uL [facility] RBC 4.74 3.80 - 4.80 M/uL [facility] HGB 13.5 12.0 - 15.0 g/dL [facility] HCT 40.5 36.0 - 46.0 % [facility] PLT 391 130 - 400 K/uL [facility] MCV 85.4 79.0 - 98.0 fL [facility] MCH 28.5 27.0 - 34.8 pg [facility] MCHC 33.3 31.5 - 36.0 g/dL [facility] RDW 13.3 10.8 - 14.6 % [facility] MPV 10.0 9.4 - 12.4 fl [facility] NRBC 0.00 /100 WBCs [facility] ABSOLUTE NRBC 0.00 K/uL [facility] Blood 01/27/2017 1:14 PM EST 01/27/2017 1:17 PM EST Ilene Hui MD LAB BLOOD BKR LESA ZENDEJAS Final Result [address] [address] * (ABNORMAL) Basic metabolic panel (01/27/2017 1:14 PM EST) SODIUM 143 133 - 146 mmol/L [facility] CHLORIDE 102 96 - 108 mmol/L [facility] POTASSIUM 4.0 3.3 - 5.1 mmol/L [facility] CO2 26 21 - 35 mmol/L [facility] BUN 12 6 - 19 mg/dL [facility] CREATININE <0.50(L) 0.5 - 1.5 mg/dL [facility] GLUCOSE 124(H) 70 - 99 mg/dL [facility] CALCIUM 9.2 8.4 - 10.3 mg/dL [facility] EGFR Test Not Performed. 60 - 1000 mL/min/1.7 3m2 [facility] Comment:Abnormal if <60. If patient is -Dutch, multiply the result by 1.21. ANION GAP 19 10 - 20 mmol/L [facility] Blood 01/27/2017 1:14 PM EST 01/27/2017 1:17 PM EST Ilene Hui MD LAB BLOOD BKR ORDLew ZENDEJAS Final Result [address] [address] * Troponin (01/27/2017 1:14 PM EST) TROPONIN-T <0.01 0 - 0.03 ng/mL [facility] Blood 01/27/2017 1:14 PM EST 01/27/2017 1:17 PM EST Ilene Hui MD LAB BLOOD BKR ORDLew ZENDEJAS Final Result Performing Organization Address City/[facility]/ZIP Co de Phone Number [address] [address] documented in this encounter Visit Diagnoses Diagnosis Chest pain, unspecified type- Primary documented in this encounter Care Teams Business Sales Consultant Relationship Specialty Start Date End Date Viky Almaraz PA [address] [place] [address] [place] [phone] PCP - General Laser Cutter 01/27/17 Sid Redman MD [address] [place] [address] Historical LMR Provider 12/02/16 2 Mundo Garrido MD [address] [place] [address], [address] [place] [address] [email or web address] Historical LMR Provider 12/02/16 02/24/21 Geoff Garrison MD [facility] [address] [place] [address] Historical LMR Provider 12/02/16 02/24/21 Elicia Hodge, [facility] [email or web address] Historical LMR Provider 12/02/16 02/24/21 Amina Alvarez MD [address] [place] [phone] Historical LMR Provider 12/02/16 2 documented as of this encounter Additional Source Comments The information contained in this document represents components of the legal health record. It is not the complete legal health record.[facility]
--- OUTSIDE RECORDS SUMMARY | 2025-01-07 07:58 | XMS_ITS | Clinical Summary ---
Author Organization [facility] Address [address] [place] [address] Care Team Providers Care Barrel Tester Name Role Phone Unavailable Primary Care Provider Unavailabl e Social History Tobacco Use Types Packs/Day Years Used Date Smoking Tobacco: Never Assessed Sex and Gender Information Value Date Recorded Sex Assigned at Not on file Gender Identity Not on file Sexual Orientation Not on file Job Start Date Occupation Industry Not on file Not on file Not on file Plan of Treatment Health Maintenance Due Date Last Done Comments Hepatitis B Vaccines (1 of 3 - 3-dose series) 1968 Hepatitis C Screening 1968 COVID-19 Vaccine (#1) 05/16/1969 Depression Screening 1980 Preventative Health Evaluation 1986 Cervical Cancer Screening (P ap Smear) 1989 Colon Cancer Screening (Colonoscopy) 2013 Breast Cancer Screening (Mammogram) 2018 Shingrix-Zoster Vaccine (1 of 2) 2018 Influenza Vaccine (#1) 2024 03/18/2018 DTap / Tdap / Td (2 - Td or Tdap) 11/21/2027 018 Pneumococcal Vaccine Aged Out 11/20/2017 No long er eligible based on patient's age to complete this topic RSV Ped < 20 months Aged Out No longe r eligible based on patient's age to complete this topic
--- OUTSIDE RECORDS SUMMARY | 2025-01-07 07:58 | XMS_ITS | Clinical Summary ---
Author Organization [facility] Address [address] [place] [address] Phone Care Team Providers Care Asian Art Curator Name Role Phone Akanksha Oh MD Primary Care Provider [phone] Allergies Active Allergy Reactions Criticality Noted Date Comments Glipizide Medium 05/03/2019 Hypoglycemia Lisinopril Cough Low 11/03/2021 Pregabalin 10/03/2017 Other Reaction(s): OTHER irritability Medications citalopram (CeleXA) 10 mg tablet Take 1 Tablet by mouth daily. 02/28/19 24 Active naproxen (EC NAPROSYN) 500 mg EC tabletIndicatio ns:osteoarthrit is,pain Take 1 tablet (500 mg total) by mouth 2 (two) times a day if needed for mild pain. Do not crush, chew, or split. Take with food. 60 tablet 11 04/23/19 25 Active ibuprofen (ADVIL,MOTRIN) 800 mg tabletIndicatio ns:Fibromyalgia ,Bilateral hip pain,Chronic midline low back pain with sciatica, sciatica laterality unspecified,Fem oral acetabular impingement Take 1 tablet (800 mg total) by mouth 3 (three) times a day if needed for moderate pain (pain). Take with food. 180 tablet 3 04/28/19 25 026 Active FLUoxetine (PROzac) 20 mg capsule Take 1 capsule (20 mg total) by mouth 1 (one) time each day. Active LORazepam (ATIVAN) 1 mg tablet Take 1 tablet (1 mg total) by mouth every 8 (eight) hours if needed. Active atorvastatin (LIPITOR) 10 mg tablet Take 1 tablet (10 mg total) by mouth at bedtime. at bedtime. 90 tablet 3 05/22/19 25 Active valsartan (DIOVAN) 160 mg tablet Take 1 tablet (160 mg total) by mouth 1 (one) time each day. 90 tablet 2 06/17/19 25 Active metoprolol tartrate (LOPRESSOR) 100 mg tablet Take 1 tablet (100 mg total) by mouth 2 (two) times a day. 180 each 3 06/24/19 25 Active fenofibrate (TRICOR) 48 mg tablet TAKE 1 TABLET (48 MG TOTAL) BY MOUTH 1 TIME EACH DAY 90 tablet 3 09/30/19 25 Active metFORMIN XR (GLUCOPHAGE-XR) 500 mg 24 hr tablet Take 1 tablet (500 mg total) by mouth 2 (two) times a day before meals. 180 tablet 1 10/01/19 25 Active SUMAtriptan (IMITREX) 25 mg tablet Take 1 tablet (25 mg total) by mouth 1 (one) time if needed for migraine. May repeat dose once in 2 hours if no relief. Do not exceed 2 doses in 24 hours. 9 tablet 5 10/30/19 25 026 Active hydrOXYzine HCL (ATARAX) 25 mg tablet Take 1 tablet (25 mg total) by mouth 2 (two) times a day if needed for itching. 60 tablet 2 11/26/19 25 Active amitriptyline (ELAVIL) 25 mg tabletIndicatio ns:Fibromyalgia TAKE 1 TABLET BY MOUTH TWICE A DAY 180 tablet 3 12/28/19 25 Active DULoxetine (CYMBALTA) [address] capsule TAKE 1 CAPSULE (20 MG TOTAL) BY MOUTH 2 (TWO) TIMES A DAY. DO NOT CRUSH OR CHEW. 180 capsule 1 12/28/19 25 Active clotrimazole-be tamethasone (LOTRISONE) 1-0.05 % cream Apply topically 2 (two) times a day. 30 g 1 12/30/19 25 Active empagliflozin (Jardiance) 25 mg tabletIndicatio ns:Type 2 diabetes mellitus with diabetic microalbuminuri a, with long-term current use of insulin ([facility] V24, [facility] V28) Take 1 tablet (25 mg total) by mouth 1 (one) time each day. 90 tablet 3 12/29/19 25 Active cyclobenzaprine (FLEXERIL) 10 mg tablet Take 1 tablet (10 mg total) by mouth 3 (three) times a day if needed for muscle spasms. 10/30/19 25 Active tirzepatide (Mounjaro) 15 mg/0.5 mL injectionIndica tions:Type 2 diabetes mellitus with other kidney complication, unspecified whether longterm insulin use ([facility] V24, [facility] V28) Inject 0.5 mL (15 mg total) under the skin every 7 (seven) days. 2 mL 11 01/07/20 25 Active amitriptyline (ELAVIL) 25 mg tablet Take 1 Tablet by mouth 2 times daily. 03/07/19 24 025 Discontinued empagliflozin (Jardiance) 25 mg tabletIndicatio ns:Type 2 diabetes mellitus with diabetic microalbuminuri a, with long-term current use of insulin ([facility] V24, [facility] V28) Take 1 tablet (25 mg total) by mouth 1 (one) time each day. 90 tablet 3 04/07/19 25 025 Discontinued(Re order) Mounjaro 15 mg/0.5 mL injection INJECT 15 MG INTO THE SKIN EVERY 7 DAYS. 2 mL 5 08/18/19 25 025 Discontinued(Re order) DULoxetine (CYMBALTA) [address] capsule Take 1 capsule (20 mg total) by mouth 1 (one) time each day. 09/30/19 25 025 Discontinued clotrimazole-be tamethasone (LOTRISONE) 1-0.05 % cream APPLY TO AFFECTED AREA TWICE A DAY TOPICALLY 30 g 1 10/27/19 25 025 Discontinued(Re order) Active Problems Problem Noted Date Diagnosed Date Type II diabetes mellitus wi th renal manifestations ([facility] V24, [facility] V28) 12/03/2023 Swallowing difficulty 12/03/2023 Primary hypertension 12/03/2023 Overview (12/03/2023): Last Assessment & Plan: Increase carvedilol to 25 mg twice a day. Hyperlipidemia 12/03/2023 Overview (12/03/2023): Last Assessment & Plan: LDL is at target. Triglyceride remain elevated. I will start fenofibrate at a lower dose. Had a discussion about weight loss and eating habit change. Globus sensation 12/03/2023 GERD (gastroesophageal reflux disease) 4 Fibromyalgia 12/03/2023 Overview (12/03/2023): Gabapentin caused weight gain - ~ 2013 Lyrica made her more anxious Cymbalta 2018; Lexapro added 10/06 Elevated liver enzymes 12/03/2023 Early satiety 12/03/2023 Abnormal large bowel motility 12/03/2023 Anxiety and depression 12/03/2023 Morbid obesity with BMI of 4 0.0-44.9, adult (CMS/HCC V24, CMS/HCC V28) 12/03/2023 Nontoxic multinodular goiter 05/03/2022 Shortness of breath 05/01/2021 Overview (12/03/2023): Last Assessment & Plan: She has noted shortness of breath when she tried to walk fast as exercise. We will arrange exercise nuclear perfusion stress test. Assessment & Plan (05/21/2024 1:23 PM EDT): Symptom has been more or less same. Previous stress test in 2020 was questionable and due to use CT attenuation correction. I will schedule an exercise nuclear stress test. Palpitations 09/08/2020 Overview (12/03/2023): Last Assessment & Plan: She has sinus tachycardia and heart rate continues to be on the higher side. I will increase carvedilol to 25 mg a twice a day. Assessment & Plan (05/21/2024 1:23 PM EDT): Continue to have a palpitation, especially after meal. Is unclear whether this had anything to do with merger. Will schedule Holter monitor. If Holter is unrevealing, suggest her to obtain a commercial ambulatory monitor device. Orders: ECG 12 lead Cardiac holter monitor (<= 48 hours); Future Hepatomegaly 07/05/2020 Fatty liver 07/05/2020 Common bile duct dilatation 07/05/2020 Elevated LFTs 06/20/2020 Microalbuminuria 05/05/2019 Distal radius fracture, left 02/26/2019 Overview (12/03/2023): Status post fall, follows with orthopedics DJD (degenerative joint disease), lumbar 019 Overview (12/03/2023): S/p xray 09/2018 mild Elevated antinuclear antibody (KIA) level 2018 Encounters Date Type Department Care Team Description 01/06/2025 11:55 AM EST Lab Draw Station - [address] Type 2 diabetes mellitus with other kidney complication, unspecified whether longterm insulin use ([facility] V24, [facility] V28); Type 2 diabetes mellitus with diabetic microalbuminuria, without long-term current use of insulin ([facility] V24, [facility] V28); Hyperlipidemia, unspecified hyperlipidemia type; Fatty liver 01/06/2025 11:15 AM EST Office Visit Endocrinology - [address] [phone] Salud Vasquez PA Type 2 diabetes mellitus with other kidney complication, unspecified whether longterm insulin use ([facility] V24, [facility] V28) (Primary Dx); Primary hypertension; Hyperlipidemia, unspecified hyperlipidemia type; Type 2 diabetes mellitus with diabetic microalbuminuria, with long-term current use of insulin ([facility] V24, [facility] V28) 10/29/2024 11:00 AM EDT Office Visit Internal Medicine - [address] [place] [address] Akanksha Oh MD Other migraine without status migrainosus, not intractable (Primary Dx); Type 2 diabetes mellitus with diabetic microalbuminuria, without long-term current use of insulin ([facility] V24, [facility] V28); Hyperlipidemia, unspecified hyperlipidemia type; Fatty liver from Last 3 Months Immunizations Immunization Administration Dates Next Due Influenza Quadravalent, MDCK , 0.5ml, preservative free (Flucelvax) 6mo and older 03/18/2018 Influenza trivalent, 0.5mL, preservative free (Fluarix; FluLaval; Fluzone) ages 6mo and older (Afluria) 3 years and older 11/20/2012,01/15/2012,11/15/2009 Pfizer SARS-CoV-2 COVID-19, mRNA, LNP-S, preservative free 05/26/2020,05/05/2020 Pneumococcal conjugate 13 va lent (Prevnar 13, PCV13) 2mo and older 11/20/2017 Pneumococcal polysaccharide 23 valent (Pneumovax 23) 2yo and older 07/24/2015 Tdap Tetanus diptheria acell ular pertussis (Boostrix; Adacel) 7yo and older 11/20/2017,07/21/2008 Surgical History Surgery Date Site/Laterality Comments HYSTERECTOMY -2012 PROCEDURE: HISTORICAL HYSTERECTOMY; COMMENT: vag hyst for fibroids SECTION PROCEDURE: HISTORICAL ; COMMENT: x3 Medical History Medical History Date Comments Hypertension DX:Hypertension Diabetes mellitus (CMS/HCC V 24, CMS/HCC V28) DX:Diabetes mellitus (HCC) Fibromyalgia DX:Fibromyalgia Anxiety DX:Anxiety Depression DX:Depression Hyperlipidemia DX:Hyperlipidemi a DM (diabetes mellitus), type 2, uncontrolled DX:DM (diabetes mellitus), t ype 2, uncontrolled DJD (degenerative joint dise ase), lumbar 10/22/2018 DX:DJD (degenerative joint d isease), lumbar; COMMENT: S/p xray 09/2018 mild Early satiety DX:Early satiety Globus sensation DX:Globus sensa tion Swallowing difficulty DX:Swallow ing difficulty Abnormal large bowel motility DX :Abnormal large bowel motility GERD (gastroesophageal reflux disease) DX:GERD (gastroesophageal reflux disease) Elevated liver enzymes DX:Elevat ed liver enzymes Elevated antinuclear antibod y (KIA) level DX:Elevated antinuclear anti body (KIA) level Elevated liver enzymes DX:Elevat ed liver enzymes Fatty liver DX:Fatty liver Dysphagia DX:Dysphagia Family History Medical History Relation Name Comments Stroke Father Diabetes Maternal Grandfather Asthma Maternal Grandmother Other: heart disease Maternal Grandmother Asthma Mother dx'd at age 62 Depression Mother dx'd at age 62 Diabetes Mother dx'd at age 62 Hypertension Mother dx'd at age 62 Nephrolithiasis Mother dx'd at age 62 Other: fibromyalgia Mother dx'd at age 62 Other: thyroid ca Mother dx'd at age 62 Ovarian cancer Mother's side Stroke Paternal Grandfather Colon cancer Neg Hx Pancreatic cancer Neg Hx Prostate cancer Neg Hx Uterine cancer Neg Hx Relation Name Status Comments Brother Alive Father Maternal Grandfather Maternal Grandmother Mother dx'd at age 62 Alive Mother's side Alive Paternal Grandfather Sister Alive Social History Tobacco Use Types Packs/Day Years [...] on file Sexual Orientation Not on file Obstetrics History Last Filed Vital Signs Vital Sign Reading Time Taken Comments Blood Pressure 95/67 01/06/2025 11:13 AM EST Pulse 92 01/06/2025 11:13 AM EST Temperature 36.4 C (97.5 F) 01/06/2025 11:13 AM EST Respiratory Rate 18 10/29/2024 10:47 AM EDT Oxygen Saturation 96% 10/29/2024 10:47 AM EDT Inhaled Oxygen Concentration - - Weight 92.2 kg (203 lb 3.2 oz) 01/06/2025 11:13 AM EST Height 157.5 cm (5' 2 ) 01/06/2025 11:13 AM EST Body Mass Index 37.17 01/06/2025 11:13 AM EST Plan of Treatment Upcoming Encounters Date Type Department Care Team (Late st Contact Info) Description 02/03/2025 11:00 AM EST Appointment Radiology Department - [address] [phone] 05/02/2025 11:00 AM EDT Office Visit Internal Medicine - [address] [place] [phone] Akanksha Oh MD [address] [place] [phone] 08/03/2025 10:45 AM EDT Office Visit Endocrinology - [place] [address] [place] [address] Salud Vasquez PA [address] [place] [address] Health Maintenance Due Date Last Done Comments Diabetes: Annual Foot Exam 1978 Hepatitis B Vaccines (1 of 3 - 19+ 3-dose series) 11/17/1987 RSV Immunization Adult Patients (1 - Risk 50-74 years 1-dose series) 2018 HIV Screening 01/24/2022 Social Influencers of Health Screening 01/24/2022 Pneumococcal Vaccine: 50+ Years (3 of 3 - PCV20 or PCV21) 11/20/2022 11/20/2017, 07/24/2015 Depression Screening 02/18/2024 03/07/2023 COVID-19 Vaccine ( season) 2024 01/09/2021, 05/26/2020, 05/05/2020 Influenza Vaccine (#1) 2024 9, 12/06/2014, 11/20/2012, Additional history exists Diabetes: Annual Retina Eye Exam 03/03/2025 03/03/2024 Diabetes: Blood Sugar Control Test (HGBA1C) 04/02/2025 01/06/2025, 09/30/2024, 04/22/2024, Additional history exists Diabetes: Annual Urine Albumin-Creatinine Ratio (uACR) 04/22/2025 04/22/2024, 11/14/2022 Breast Cancer Screening 09/18/2025 09/19/19 24, 09/19/2023, 09/11/2022, Additional history exists Diabetes: Annual GFR (Glomerular Filtration Rate) 01/06/2026 01/06/2025, 04/01/2024, 03/11/2023 Hypertension/CHF/CAD Annual BMP Blood Test 01/06/2026 01/06/2025, 04/01/2024, 03/11/2023 DTaP,Tdap,and Td Vaccines (3 - Td or Tdap) 11/21/2027 11/20/2017, 07/21/2008 Cholesterol Screening (Lipid Panel) 04/22/2029 04/22/2024, 03/11/2023 Colorectal Cancer Screening: Colonoscopy 10/22/2032 10/22/2022 Hepatitis C Screening Completed 06/20/2020 Zoster Vaccines Completed 06/26/2021, 03/01/2021 HIB Vaccines Aged Out No longer eligi ble based on patient's age to complete this topic HPV Vaccines Aged Out No longer eligi ble based on patient's age to complete this topic Hepatitis A Vaccines Aged Out No long er eligible based on patient's age to complete this topic IPV Vaccines Aged Out No longer eligi ble based on patient's age to complete this topic MMR Vaccines Aged Out No longer eligi ble based on patient's age to complete this topic Meningococcal ACWY Vaccine Aged Out N o longer eligible based on patient's age to complete this topic Meningococcal B Vaccine Aged Out No l onger eligible based on patient's age to complete this topic RSV Immunization Patients Under 20 months Aged Out No longer eligible based on patient's age to complete this topic Varicella Vaccines Aged Out No longer eligible based on patient's age to complete this topic Procedures Procedure Name Priority Date/Time Associated Diagnosis Comments COMPREHENSIVE METABOLIC PANEL Routine 01/06/2025 11:59 AM EST Type 2 diabetes mellitus with diabetic microalbuminuria, without long-term current use of insulin ([facility] V24, [facility] V28) Hyperlipidemia, unspecified hyperlipidemia type Fatty liver COMPLETE BLOOD COUNT Routine 01/06/2025 11:59 AM EST Type 2 diabetes mellitus with diabetic microalbuminuria, without long-term current use of insulin ([facility] V24, [facility] V28) Hyperlipidemia, unspecified hyperlipidemia type Fatty liver VITAMIN D 25 HYDROXY Routine 01/06/2025 11:59 AM EST Type 2 diabetes mellitus with diabetic microalbuminuria, without long-term current use of insulin ([facility] V24, [facility] V28) Hyperlipidemia, unspecified hyperlipidemia type Fatty liver HEMOGLOBIN A1C Routine 01/06/2025 11:59 AM EST Type 2 diabetes mellitus with other kidney complication, 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 ([facility] V24, [facility] V28) POC GLUCOSE Routine 01/06/2025 11:14 AM EST Type 2 diabetes mellitus with other kidney complication, unspecified whether longterm insulin use ([facility] V24, [facility] V28) MICROALBUMIN CREATININE URINE RATIO Routine 04/22/2024 10:54 AM EST Type 2 diabetes mellitus with other kidney complication, 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 ([facility] V24, [facility] V28) Microalbuminuria LIPID PANEL WITH REFLEX TO DIRECT LDL Routine 04/22/2024 10:54 AM EST Type 2 diabetes mellitus with other kidney complication, 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 ([facility] V24, [facility] V28) Hyperlipidemia, unspecified hyperlipidemia type SCREENING MAMMOGRAPHY BI 2-VIEW BREAST INC CAD Routine 09/19/2023 11:13 AM EDT Mastodynia HM DEPRESSION SCREENING Routine 03/07/2023 COLONOSCOPY Routine 10/22/2022 HEPATITIS C SCREENING Routine 06/20/2020 from Last 3 Months or Most Recently Relevant to Health Maintenance Results * Vitamin D 25 hydroxy (01/06/2025 11:59 AM EST) Vit D, 25-Hydroxy 61.4 30.0 - 80.0 ng/mL 01/06/2025 3:39 PM EST [facility] Blood Venous blood specimen / Unknown Venipuncture / Unknown 01/06/2025 11:59 AM EST 01/06/2025 11:59 AM EST us Akanksha Oh MD LAB BLOOD ORDERABLES Final Res ult [facility] [address] [place] [address], [place] [phone] * (ABNORMAL) Complete blood count (01/06/2025 11:59 AM EST) [facility] WBC 8.5 4.8 - 10.8 K/mcL LAB HEMETOLOGY METHOD 01/06/2025 3:03 PM [facility] RBC 5.30(H) 3.80 - 4.80 M/mcL LAB HEMETOLOGY METHOD 01/06/2025 3:03 PM [facility] Hemoglobin 14.8 11.5 - 16.0 g/dL LAB HEMETOLOGY METHOD 01/06/2025 3:03 PM [facility] Hematocrit 46.5 35.0 - 47.0 % LAB HEMETOLOGY METHOD 01/06/2025 3:03 PM [facility] MCV 88.4 79.0 - 98.0 FL LAB HEMETOLOGY METHOD 01/06/2025 3:03 PM [facility] MCH 28.1 27.0 - 32.0 pcg LAB HEMETOLOGY METHOD 01/06/2025 3:03 PM [facility] MCHC 31.8(L) 32.0 - 37.0 g/dL LAB HEMETOLOGY METHOD 01/06/2025 3:03 PM [facility] RDW 14.4 11.0 - 15.0 % LAB HEMETOLOGY METHOD 01/06/2025 3:03 PM [facility] Platelets 394 130 - 400 K/mcL LAB HEMETOLOGY METHOD 01/06/2025 3:03 PM [facility] MPV 9.7 7.0 - 11.0 FL LAB HEMETOLOGY METHOD 01/06/2025 3:03 PM [facility] NRBC 0.0 <1.0 % LAB HEMETOLOGY METHOD 01/06/2025 3:03 PM [facility] NRBC Absolute 0.00 <0.10 K/mcL LAB HEMETOLOGY METHOD 01/06/2025 3:03 PM EST [facility] Blood Venous blood specimen / Unknown Venipuncture / Unknown 01/06/2025 11:59 AM EST 01/06/2025 11:59 AM EST us Akanksha hO MD LAB BLOOD ORDERABLES Final Res ult Performing Organization Address City/[facility]/ZIP Co de Phone Number [facility] [address] [place] [address], [place] [phone] * (ABNORMAL) Hemoglobin A1c (01/06/2025 11:59 AM EST) Pathologist [facility] Hemoglobin A1C 7.2(H) <6.5 % LAB CHEMISTRY METHOD 01/06/2025 9:17 PM EST [facility] Mean Bld Glu Estim. 160 mg/dL LAB CHEMISTRY METHOD 01/06/2025 9:17 PM EST [facility] Blood Venous blood specimen / Unknown Venipuncture / Unknown 01/06/2025 11:59 AM EST 01/06/2025 11:59 AM EST us Salud SOUZA LAB BLOOD ORDERABLES Final Result Performing Organization Address [facility]/ZIP Co de Phone Number [facility] [address] [place] [address], [place] [phone] * (ABNORMAL) Comprehensive metabolic panel (01/06/2025 11:59 AM EST) Sodium 143 133 - 145 mmol/L 01/06/2025 3:39 PM EST [facility] Potassium 4.4 3.5 - 5.5 mmol/L 01/06/2025 3:39 PM EST [facility] Chloride 105 96 - 110 mmol/L 01/06/2025 3:39 PM EST [facility] CO2 26 21 - 32 mmol/L 01/06/2025 3:39 PM [facility] Anion Gap 12(H) 3 - 11 01/06/2025 3:39 PM [facility] Glucose 118(H) 70 - 100 mg/dL 01/06/2025 3:39 PM [facility] BUN 17 5 - 25 mg/dL 01/06/2025 3:39 PM [facility] Creatinine 0.70 0.50 - 1.10 mg/dL 01/06/2025 3:39 PM [facility] eGFR 102 >=60 mL/min/1. 73m2 01/06/2025 3:39 PM [facility] Comment:Calculation based on the Chronic Kidney Disease Epidemiology Collaboration (CKD-EPI) equation refit without adjustment for race. BUN/Creatinine Ratio 24.3 01/06/2025 3:39 PM [facility] Calcium 9.2 8.5 - 10.5 mg/dL 01/06/2025 3:39 PM [facility] AST (SGOT) 22 10 - 42 unit/L 01/06/2025 3:39 PM [facility] ALT (SGPT) 25 10 - 60 unit/L 01/06/2025 3:39 PM [facility] Alkaline Phosphatase 112 42 - 121 unit/L 01/06/2025 3:39 PM [facility] Total Protein 6.8 6.0 - 8.0 g/dL 01/06/2025 3:39 PM [facility] Albumin 4.4 3.2 - 5.0 g/dL 01/06/2025 3:39 PM [facility] Total Bilirubin 1.0 0.0 - 1.4 mg/dL 01/06/2025 3:39 PM [facility] Blood Venous blood specimen / Unknown Venipuncture / Unknown 01/06/2025 11:59 AM EST 01/06/2025 11:59 AM EST us Akanksha Oh MD LAB BLOOD ORDERABLES Final Res ult [facility] [address] [place] [address], [place] [phone] * POC glucose manually resulted (01/06/2025 11:14 AM EST) Glucose POC 135 mg/dL Blood Capillary blood specimen / Unknown 01/06/2025 11:14 AM EST us Salud SOUZA POINT OF CARE TEST ENTER/ED IT ORDERABLES Final Result * (ABNORMAL) Lipid panel with reflex to direct LDL (04/22/2024 10:54 AM EST) Cholesterol 194 0 - 200 mg/dL LAB CHEMISTRY METHOD 04/22/2024 3:43 PM [facility] Triglycerides 175(H) 0 - 150 mg/dL LAB CHEMISTRY METHOD 04/22/2024 3:43 PM [facility] HDL 65 >=40 mg/dL LAB CHEMISTRY METHOD 04/22/2024 3:43 PM [facility] LDL Calculated 94 0 - 100 mg/dL LAB CHEMISTRY METHOD 04/22/2024 3:43 PM [facility] VLDL Cholesterol Jude 35 mg/dL LAB CHEMISTRY METHOD 04/22/2024 3:43 PM [facility] Non HDL Chol. (LDL+VLDL) 129 <145 mg/dL LAB CHEMISTRY METHOD 04/22/2024 3:43 PM [facility] Chol/HDL Ratio 3.0 0.0 - 4.4 LAB CHEMISTRY METHOD 04/22/2024 3:43 PM [facility] Blood Venous blood specimen / Unknown Venipuncture / Unknown 04/22/2024 10:54 AM EST 04/22/2024 10:54 AM EST Salud SOUZA LAB BLOOD ORDERABLES Final Result Performing Organization Address [facility]/ZIP Co de Phone Number [facility] [address] [place] [address], [place] [phone] * Microalbumin creatinine urine ratio (04/22/2024 10:54 AM EST) Creatinine, Urine 80.0 mg/dL LAB CHEMISTRY METHOD 04/22/2024 2:59 PM EST [facility] Microalb, Ur 8.7 0.0 - 29.0 mg/L LAB CHEMISTRY METHOD 04/22/2024 2:59 PM EST [facility] Microalb/Creat Ratio 11 <30 mg/g creat LAB CHEMISTRY METHOD 04/22/2024 2:59 PM EST [facility] Urine Urine specimen from urethra / Unknown Non-blood Collection / Unknown 04/22/2024 10:54 AM EST 04/22/2024 10:54 AM EST Salud SOUZA LAB URINE ORDERABLES Final Result Performing Organization Address [facility] de Phone Number [facility] [address] [place] [address], [place] [phone] * SCREENING MAMMOGRAPHY BI 2-VIEW BREAST INC CAD (09/19/2023 11:13 AM EDT) Anatomical Region Laterality Modality Radiographic Shruti ging 09/11/2022 11:0 1 AM EDT Narrative 09/19/2023 2:31 PM EDT This is a summary report. The complete report is available in the patient's medical record. If you cannot access the medical record, please contact the sending organization for a detailed fax or copy. Full field digital screening 2D C views and 3D tomosynthesis mammography, reviewed with CAD and compared to previous. The breasts are composed of fatty and fibroglandular tissue. No suspicious mass, architectural distortion or suspicious calcifications are identified. IMPRESSION: : No mammographic evidence of malignancy. BIRADS 1-Negative; N. 5 year breast cancer risk assessment 1.5 % Lifetime breast cancer risk assessment 11.0 % Breast cancer risk category Low (<15%) Procedure Note Ashley Morales MD - 12/03/2023 This is a summary report. The complete report is available in thepatient's medical record. If you cannot access the medical record, pleasecontact the sending organization for a detailed fax or copy. Full field digital screening 2D C views and 3D tomosynthesis mammography,reviewed with CAD and compared to previous. The breasts are composed offatty and fibroglandular tissue. No suspicious mass, architecturaldistortion or suspicious calcifications are identified. IMPRESSION: : No mammographic evidence of malignancy. BIRADS 1-Negative; N. 5 year breast cancer risk assessment 1.5 % Lifetime breast cancer risk assessment 11.0 % Breast cancer risk category Low (<15%) Akanksha Oh MD IMG XR PROCEDURES Final Result * Depression Screening (03/07/2023) Pathologist [facility] Depression Screening Abstracted Result [facility] Provider HEALTH MAINTENANCE Final Result * Colonoscopy (10/22/2022) [facility] Colonoscopy Abstracted, No interpretation Anatomical Region Laterality Modality Other Result [facility] Provider HEALTH MAINTENANCE Final Result * Hepatitis C Screening (06/20/2020) Pathologist [facility] Hepatitis C Screening Abstracted Result [facility] Provider HEALTH MAINTENANCE Final Result from Last 3 Months or Most Recently Relevant to Health Maintenance Insurance [facility] [employer] Advance Directives Documents on File Type Date 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 Health Care Decision (hx) 07/22/2020 AD DOMÍNGUEZ DIRECTIVE Health Care Decision (hx) 07/22/2020 AD DOMÍNGUEZ DIRECTIVE Health Care Decision (hx) 07/22/2020 AD DOMÍNGUEZ DIRECTIVE Health Care Decision (hx) 07/22/2020 AD DOMÍNGUEZ DIRECTIVE Health Care Decision (hx) 07/22/2020 AD DOMÍNGUEZ DIRECTIVE Health Care Decision (hx) 07/22/2020 AD DOMÍNGUEZ DIRECTIVE Health Care Decision (hx) 07/22/2020 AD DOMÍNGUEZ DIRECTIVE Health Care Decision (hx) 07/22/2020 AD DOMÍNGUEZ DIRECTIVE Health Care Decision (hx) 07/22/2020 AD DOMÍNGUEZ DIRECTIVE Health Care Decision (hx) 07/22/2020 AD DOMÍNGUEZ DIRECTIVE Health Care Decision (hx) 07/22/2020 AD DOMÍNGUEZ DIRECTIVE Health Care Decision (hx) 07/22/2020 AD DOMÍNGUEZ DIRECTIVE Health Care Decision (hx) 07/22/2020 AD DOMÍNGUEZ DIRECTIVE Health Care Decision (hx) 07/22/2020 AD DOMÍNGUEZ DIRECTIVE Health Care Decision (hx) 07/22/2020 AD DOMÍNGUEZ DIRECTIVE Care 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
--- NOTE | 2025-01-07 12:14 | MHC.OFFVISWM ---
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 HEALTHCARE OR MEDICAL Corporate Affairs Manager Required: Yes Corporate Affairs Manager Services: Corporate Affairs Manager Present Information Interpreted: clinical only Allergies glipizide Allergy (Intermediate, Verified 01/07/25 12:15) low blood sugar pregabalin (From Lyrica) Allergy (Intermediate, Verified 12/15/24 11:22) Irritable Medication List - Last Reconciled 01/07/25 by Jake Skinner MD amitriptyline 25 mg PO BEDTIME atorvastatin 10 mg PO DAILY citalopram 10 mg PO DAILY duloxetine 20 mg PO BID empagliflozin (Jardiance) 25 mg PO DAILY famotidine 20 mg PO DAILY fenofibrate 40 mg PO DAILY hydroxyzine HCl 25 mg PO BID PRN metformin ER 500 mg PO BID metoprolol tartrate 100 mg PO DAILY sumatriptan succinate mg PO tirzepatide (Mounjaro) 15 mg subcut QWEEK valsartan 160 mg PO DAILY HPI 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 BMI 36.3 HEALTHCARE OR MEDICAL: Details: Start time: 12.11pm, End time: 1.11pm ?I spent 55 minutes speaking with the patient on the phone plus an additional 5 minutes reviewing and updating records for a total of 60 minutes HPI Comments Details: Previous weight loss efforts: Mounjaro for 12mths up to 15mg/wk for 6mths: 20lbs Wakes up: 11am, Sleeps: 10pm Breakfast: 12pm (sandwich, Glucerna protein shake) Lunch: skips Dinner: 6pm (rice, meat, pasta, beans) Snacks: 4pm (fruit, chocolate), 8pm (fruits) Exercise: has home treadmill (tracks calories and inclines), stationary bike (tracks calories) Beverages: Coffee/ hot chocolate (1 cup/d), Regular Soda (sometimes), Juice: none, ETOH: none PFSH Medical History (Updated 01/07/25 @ 13:01 by Jake Skinner MD) Insomnia Anxiety Depression Non-insulin dependent type 2 diabetes mellitus BMI 33.0-33.9,adult Obesity Dry skin dermatitis Diabetes Hypertension Hyperlipemia Morbid obesity DJD (degenerative joint disease), lumbar GERD (gastroesophageal reflux disease) Abnormal large bowel motility Swallowing difficulty Globus sensation Fatty liver Hepatomegaly Palpitations SOB (shortness of breath) Fibromyalgia Surgical History S/P thyroid biopsy H/O: hysterectomy History of cholecystectomy History of Family History Mother Breast cancer Diabetes Hypertension Anxiety and depression Fibromyalgia Thyroid cancer Father Alzheimer's dementia Social History Household Members: Spouse Alcohol intake: current Alcohol intake frequency: does not drink Patient Tobacco Use Status: Never used Tobacco Telehealth Telehealth Telehealth Platform: Telephone Location of provider rendering services: practice address Location of patient: address on file Patient Identification confirmed using: Name, : Yes Telehealth method: voice only Patient verbally consented to treatment: Yes Patient verbally consented to billing insurance company: Yes Patient informed of any privacy concerns related to visit: Yes Minutes spent on Phone/Video with Pt.: 60 Assessment & Plan Assessment & Plan (1) Obesity: Code(s): E66.9 - Obesity, unspecified Category: Medical Qualifiers: Obesity type: due to excess calories Obesity classification: adult class 1 (BMI 30 - 34.9) Serious obesity comorbidity presence: with serious comorbidity Body mass index: BMI 33.0-33.9 Qualified Code(s): E66.811 - Obesity, class 1; E66.09 - Other obesity due to excess calories; Z68.33 - Body mass index [BMI] 33.0-33.9, adult Plan: 1.? Plan for lap sleeve gastrectomy. If diaphragmatic or ventral hernias are present at time of surgery, these will be repaired laparoscopically as well. I emphasized the importance of close follow-up, adherence to instructions and good communication. The surgery does not replace the need to change your lifestlyle which is the cause of the obesity problem. The surgery provides the motivation to try again to change your lifestyle, it reduces the appetite and make the transition to a better lifestyle easier and doubles the amount of weight you would lose compared to doing the lifestyle change without the surgery. You will need to be on a liquid diet with protein shakes for 2 weeks before surgery to maximize weight loss and boost your nutritional status to recover better from surgery and also for the first two weeks after surgery to let the stomach heal before we introduce other foods. After the first 2 weeks we will introduce protein bars and soft foods like scrambled eggs, cottage cheese and yogurt and after the 6th week will introduce meat, fish and cooked vegetables in small amounts. Over time you should be able to eat everything in small amounts. Side effects like nausea, vomiting, heartburn or abdominal pain are not common in the practice unless you are not following in the practice. This operation requires lifetime commitment to following in our practice and communication with me. You will much less weight and experience side effects if you don?t communicate or not following in the practice. Complications are rare and in our practice is about 1/10 of the national average. However, you can develop bleeding that may require transfusion (hasn?t happened for year in the practice), you may from complications (we did not have any deaths in the practice) and infections. Infections are usually a result of breakdown in communication or not understanding or following directions correctly. They are difficult to treat, they can happen during the first 6 weeks, they may require to be in the hospital for weeks or even months, not being able to eat by mouth and you may have drains and surgeries to try and correct the issue. Other risks and complications include possible conversion to an open procedure, leaks, small bowel obstruction, blood clots, cardiac, or pulmonary complications, as snf complications such as ulcers, insufficient weight loss and vitamin deficiencies. 2. Nutritional counseling. Start with one premade PREMIER protein (buy at [employer] or [employer]) shake (mix 4oz of Premier mixed with 4oz low fat unsweetened almond milk) at 11am-1pm, one protein bar (Fit Crunch protein bar, buy at [employer], or [employer]) at 2pm-4pm, dinner at 5pm (8 forks of protein and 8 forks of salad/vegetables), another premade PREMIER protein shake (mix 4oz of Premier mixed with 4oz low fat unsweetened almond milk each) at 7pm-9pm, another [employer]unch protein bar at 9pm-11pm So you do 2 protein shakes, 2 protein bars and one meal per day. Meal to include lean meat (beef, fish, pork, turkey, chicken), or algerian yogurt, or egg whites, or beans with a salad with olive oil and fruits (berries, pears, apples, kiwi). Avoid salt, breads, potatoes, rice, pasta, desserts. 3. Each shake would be drunk slowly, like coffee in a period of 2 hours. 4. Cut each bar in 4 pieces and eat each piece in 30min ?to make each bar last 2 hours. 5. I emphasized the importance of measuring accurately the food portion and measure it when serving the food in plate 6. The meal portions include 8 full-size forks of meat and 8 full-size forks of salad. You always eat the meat portion but you can replace up to 4 forks for salad/vegetables with rice, potatoes or pasta, or a fruit ?if you like. The less you do it the better weight loss will be. 7. One full-size fork is what it can be scooped on the fork without falling aside and not what can be bit with the fork. Use regular forks like those you find in a typical restaurant. 8.? Please buy the body composition scale we discussed and send me weight measurements as soon as possible and then once a week. Always include your diet and exercise plan. 9. Start treadmill with an incline of 0.0 and speed of 2.5 mph. Increase incline by 1 every 3 min to a max incline of 6.0, stay 3min at 6.0 and then return to 0.0 and repeat same steps until calorie goal is met. Goal is to burn 2000 calories per week on exercise, which means either 300 calories daily. 10. Alternatively start stationary bike at a resistance level of 0.0 Increase level by 1.0 every 3 min to a max level of 6.0. Stay at this level for 3 min and then return to level 0.0 and repeat same steps until 300 calories are burned. Goal is to burn 2000 calories per week on exercise between the treadmill and the bike. 11. Goal is to lose at least 1.5-2lbs per week 12. Goal to lose another 13lbs of your weight before surgery. Ultimate weight goal: 200lbs before surgery 13. Please follow the diet plan exactly without any change. If you don't like something about the plan or you feel hungry you need to communicate with me so I can help you revise the plan. You should not change the plan yourself 14. To be scheduled for EGD to assess the stomach's anatomy. The possibility of biopsies was discussed. Patient needs to avoid use of NSAIDs and aspirin for 1 week prior to EGD. You must be on liquids only the day before your endoscopy. Risks of perforation and bleeding was discussed with the patient. This will be an outpatient procedure with IV sedation. 15. Emphasized the importance of checking his blood glucose levels frequently and daily and to report to me any blood glucose below 100, so I can adjust his insulin and prevent hypoglycemic episodes 16. Emphasized the importance of monitoring the blood pressure daily in am when wakes up and two more times throughout the day. If systolic blood pressure is 110 mmHg, or less I explained to the patient that needs to notify me. Also I explained the symptoms of orthostatic hypotension (dizziness and lightheadedness) for which the patient also needs to notify me. Orders: Orders Insulin Today E11.9 - Type 2 diabetes mellitus without complications, E66.9 - Obesity, unspecified, E78.5 - Hyperlipidemia, unspecified, I10 - Essential (primary) hypertension, K21.9 - Gastro-esophageal reflux disease without esophagitis, Z68.33 - Body mass index [BMI] 33.0-33.9, adult Hemoglobin A1c Today E11.9 - Type 2 diabetes mellitus without complications, E66.9 - Obesity, unspecified, E78.5 - Hyperlipidemia, unspecified, I10 - Essential (primary) hypertension, K21.9 - Gastro-esophageal reflux disease without esophagitis, Z68.33 - Body mass index [BMI] 33.0-33.9, adult Lipid Panel Today E11.9 - Type 2 diabetes mellitus without complications, E66.9 - Obesity, unspecified, E78.5 - Hyperlipidemia, unspecified, I10 - Essential (primary) hypertension, K21.9 - Gastro-esophageal reflux disease without esophagitis, Z68.33 - Body mass index [BMI] 33.0-33.9, adult IRON PROFILE Today E11.9 - Type 2 diabetes mellitus without complications, E66.9 - Obesity, unspecified, E78.5 - Hyperlipidemia, unspecified, I10 - Essential (primary) hypertension, K21.9 - Gastro-esophageal reflux disease without esophagitis, Z68.33 - Body mass index [BMI] 33.0-33.9, adult Comprehensive Met. Panel Today E11.9 - Type 2 diabetes mellitus without complications, E66.9 - Obesity, unspecified, E78.5 - Hyperlipidemia, unspecified, I10 - Essential (primary) hypertension, K21.9 - Gastro-esophageal reflux disease without esophagitis, Z68.33 - Body mass index [BMI] 33.0-33.9, adult Vitamin B12 and Folate Today E11.9 - Type 2 diabetes mellitus without complications, E66.9 - Obesity, unspecified, E78.5 - Hyperlipidemia, unspecified, I10 - Essential (primary) hypertension, K21.9 - Gastro-esophageal reflux disease without esophagitis, Z68.33 - Body mass index [BMI] 33.0-33.9, adult Zinc Today E11.9 - Type 2 diabetes mellitus without complications, E66.9 - Obesity, unspecified, E78.5 - Hyperlipidemia, unspecified, I10 - Essential (primary) hypertension, K21.9 - Gastro-esophageal reflux disease without esophagitis, Z68.33 - Body mass index [BMI] 33.0-33.9, adult C Reactive Protein Today E11.9 - Type 2 diabetes mellitus without complications, E66.9 - Obesity, unspecified, E78.5 - Hyperlipidemia, unspecified, I10 - Essential (primary) hypertension, K21.9 - Gastro-esophageal reflux disease without esophagitis, Z68.33 - Body mass index [BMI] 33.0-33.9, adult Vitamin D 25-OH Total Today E11.9 - Type 2 diabetes mellitus without complications, E66.9 - Obesity, unspecified, E78.5 - Hyperlipidemia, unspecified, I10 - Essential (primary) hypertension, K21.9 - Gastro-esophageal reflux disease without esophagitis, Z68.33 - Body mass index [BMI] 33.0-33.9, adult XR chest 2V Today E11.9 - Type 2 diabetes mellitus without complications, E66.9 - Obesity, unspecified, E78.5 - Hyperlipidemia, unspecified, I10 - Essential (primary) hypertension, K21.9 - Gastro-esophageal reflux disease without esophagitis, Z68.33 - Body mass index [BMI] 33.0-33.9, adult H Pylori Breath Test Today E11.9 - Type 2 diabetes mellitus without complications, E66.9 - Obesity, unspecified, E78.5 - Hyperlipidemia, unspecified, I10 - Essential (primary) hypertension, K21.9 - Gastro-esophageal reflux disease without esophagitis, Z68.33 - Body mass index [BMI] 33.0-33.9, adult Complete Blood Count Auto Diff Today E11.9 - Type 2 diabetes mellitus without complications, E66.9 - Obesity, unspecified, E78.5 - Hyperlipidemia, unspecified, I10 - Essential (primary) hypertension, K21.9 - Gastro-esophageal reflux disease without esophagitis, Z68.33 - Body mass index [BMI] 33.0-33.9, adult Vitamin B1 Today E11.9 - Type 2 diabetes mellitus without complications, E66.9 - Obesity, unspecified, E78.5 - Hyperlipidemia, unspecified, I10 - Essential (primary) hypertension, K21.9 - Gastro-esophageal reflux disease without esophagitis, Z68.33 - Body mass index [BMI] 33.0-33.9, adult Vitamin A Today E11.9 - Type 2 diabetes mellitus without complications, E66.9 - Obesity, unspecified, E78.5 - Hyperlipidemia, unspecified, I10 - Essential (primary) hypertension, K21.9 - Gastro-esophageal reflux disease without esophagitis, Z68.33 - Body mass index [BMI] 33.0-33.9, adult TSH reflex Free T4 Today E11.9 - Type 2 diabetes mellitus without complications, E66.9 - Obesity, unspecified, E78.5 - Hyperlipidemia, unspecified, I10 - Essential (primary) hypertension, K21.9 - Gastro-esophageal reflux disease without esophagitis, Z68.33 - Body mass index [BMI] 33.0-33.9, adult Ferritin Today E11.9 - Type 2 diabetes mellitus without complications, E66.9 - Obesity, unspecified, E78.5 - Hyperlipidemia, unspecified, I10 - Essential (primary) hypertension, K21.9 - Gastro-esophageal reflux disease without esophagitis, Z68.33 - Body mass index [BMI] 33.0-33.9, adult US abdomen comp w elastography Today E11.9 - Type 2 diabetes mellitus without complications, E66.9 - Obesity, unspecified, E78.5 - Hyperlipidemia, unspecified, I10 - Essential (primary) hypertension, K21.9 - Gastro-esophageal reflux disease without esophagitis, Z68.33 - Body mass index [BMI] 33.0-33.9, adult ECG 12 lead EKG Today E11.9 - Type 2 diabetes mellitus without complications, E66.9 - Obesity, unspecified, E78.5 - Hyperlipidemia, unspecified, I10 - Essential (primary) hypertension, K21.9 - Gastro-esophageal reflux disease without esophagitis, Z68.33 - Body mass index [BMI] 33.0-33.9, adult FL upper GI w air Today E11.9 - Type 2 diabetes mellitus without complications, E66.9 - Obesity, unspecified, E78.5 - Hyperlipidemia, unspecified, I10 - Essential (primary) hypertension, K21.9 - Gastro-esophageal reflux disease without esophagitis, Z68.33 - Body mass index [BMI] 33.0-33.9, adult Referrals Behavioral Health Referral E11.9 - Type 2 diabetes mellitus without complications, E66.9 - Obesity, unspecified, E78.5 - Hyperlipidemia, unspecified, I10 - Essential (primary) hypertension, K21.9 - Gastro-esophageal reflux disease without esophagitis, Z68.33 - Body mass index [BMI] 33.0-33.9, adult Nutrition/Dietitian Referral E11.9 - Type 2 diabetes mellitus without complications, E66.9 - Obesity, unspecified, E78.5 - Hyperlipidemia, unspecified, I10 - Essential (primary) hypertension, K21.9 - Gastro-esophageal reflux disease without esophagitis, Z68.33 - Body mass index [BMI] 33.0-33.9, adult
[2025-01-07 12:43] VITALS: BMI 39.0
== END 2025-01-07 13:13 | disposition home or self-care (01) ==
LOC: HO.HBS 07:54
PROVIDERS: PCP Internal Medicine; Visit Provider Surgery
DX: E66.9 Obesity, unspecified (principal); Z68.33 Body mass index [BMI] 33.0-33.9, adult
CPT/HCPCS: 98011

== ENCOUNTER 2025-01-26 11:16 | Outpatient (REF) | payer OTHER, SELFPAY ==
--- NOTE | 2025-01-26 11:20 | ECG_ITS ---
Test Reason : E66.01 Blood Pressure : */* mmHG Vent. Rate : 97 BPM Atrial Rate : 97 BPM P-R Int : 162 ms QRS Dur : 84 ms QT Int : 340 ms P-R-T Axes : 61 15 29 degrees QTcB Int : 431 ms Normal sinus rhythm Normal ECG No previous ECGs available Referred By: Jake Skinner Electronically Signed By: SEAN HUGO MD
[2025-01-26 11:44] LABS: MANUAL DIFF FLAG NO
[2025-01-26 11:54] LABS: Hematocrit 42.9 % (37.0-47.0); Hemoglobin 14.2 g/dl (12.0-16.0); Imm Gran Abs Auto 0.02 X10*3/uL (0.00-0.03); Imm Gran Pct Auto 0.2 % (0.0-0.4); Lymphocytes Absolute Auto 2.1 X10*3/uL (1.2-4.9); Mean Corpuscular HGB Conc 33.1 g/dl (31.0-35.0); Mean Corpuscular Hemoglobin 28.2 pg (27.0-33.0); Mean Corpuscular Volume 85.3 fL (80.0-98.0); NRBC Abs Auto 0.000 X10*3/uL (0.0-0.012); NRBC Pct Auto 0.0 /100WBC (0.0-0.2); Platelet Count 360 X10*3/uL (160-400); Red Blood Count 5.03 X10*6/uL (4.20-5.50); White Blood Count 8.3 X10*3/uL (4.8-10.8)
[2025-01-26 12:52] LABS: Alanine Aminotransferase 35 U/L (0-31); Albumin Level 4.3 g/dL (3.5-5.0); Alkaline Phosphatase 112 U/L (39-117); Anion Gap 10 (12-20); Aspartate Amino Transferase 27 U/L (5-31); Blood Urea Nitrogen 16 mg/dL (9-16); Calcium 9.0 mg/dL (8.4-10.2); Carbon Dioxide 25 mmol/L (22-29); Chloride 109 mmol/L (96-108); Cholesterol 176 mg/dL (<200); Estimated Glomerular Filt Rate > 60; HDL Cholesterol 58 mg/dL (>40); Iron 91 mcg/dL (30-160); Percent Iron Saturation 29 % (15-50); Potassium 4.0 mmol/L (3.3-5.1); Sodium 140 mmol/L (135-145); Total Iron Binding Capacity 319 mcg/dL (228-428); Total Protein 7.0 g/dL (6.5-8.0); Triglycerides 167 mg/dL (<150); Unsaturated Iron Binding 228 ug/dL
[2025-01-26 13:10] LABS: Folate 7.1 ng/mL (> or = 4.0); Vitamin B12 724 pg/mL (200-900)
[2025-01-26 13:17] LABS: Ferritin 98 ng/mL (10-250)
--- OUTSIDE RECORDS SUMMARY | 2025-01-26 18:06 | XMS_ITS | Clinical Summary ---
Author Organization [facility] Prior to 07/17/24 Address [address] [place] [address] Care Team Providers Care Corporate Development Intern Name Role Phone Unavailable Primary Care Provider [...]
--- OUTSIDE RECORDS SUMMARY | 2025-01-26 18:07 | XMS_ITS | Clinical Summary ---
Author Organization 175 [facility] Address [address] [place] [address] Phone Care Team Providers Care Substation Electrician Supervisor Name Role Phone Akanksha Oh MD Primary Care Provider [phone] Allergies Active Allergy Reactions Criticality Noted Date Comments Glipizide Medium 05/03/2019 Hypoglycemia Lisinopril Cough Low 11/03/2021 Pregabalin 10/03/2017 Other Reaction(s): OTHER irritability Medications naproxen (EC NAPROSYN) 500 mg EC tabletIndicati ons:osteoarthr itis,pain Take 1 tablet (500 mg total) by mouth 2 (two) times a day if needed for mild pain. Do not crush, chew, or split. Take with food. 60 tablet 11 025 Active ibuprofen (ADVIL,MOTRIN) 800 mg tabletIndicati ons:Fibromyalg ia,Bilateral hip pain,Chronic midline low back pain with sciatica, sciatica laterality unspecified,Fe moral acetabular impingement Take 1 tablet (800 mg total) by mouth 3 (three) times a day if needed for moderate pain (pain). Take with food. 180 tablet 3 025 2025 Active FLUoxetine (PROzac) 20 mg capsule Take 1 capsule (20 mg total) by mouth 1 (one) time each day. Active LORazepam (ATIVAN) 1 mg tablet Take 1 tablet (1 mg total) by mouth every 8 (eight) hours if needed. Active atorvastatin (LIPITOR) 10 mg tablet Take 1 tablet (10 mg total) by mouth at bedtime. at bedtime. 90 tablet 3 025 Active valsartan (DIOVAN) 160 mg tablet Take 1 tablet (160 mg total) by mouth 1 (one) time each day. 90 tablet 2 025 Active metoprolol tartrate (LOPRESSOR) 100 mg tablet Take 1 tablet (100 mg total) by mouth 2 (two) times a day. 180 each 3 025 Active fenofibrate (TRICOR) 48 mg tablet TAKE 1 TABLET (48 MG TOTAL) BY MOUTH 1 TIME EACH DAY 90 tablet 3 025 Active metFORMIN XR (GLUCOPHAGE-XR ) 500 mg 24 hr tablet Take 1 tablet (500 mg total) by mouth 2 (two) times a day before meals. 180 tablet 1 025 Active SUMAtriptan (IMITREX) 25 mg tablet Take 1 tablet (25 mg total) by mouth 1 (one) time if needed for migraine. May repeat dose once in 2 hours if no relief. Do not exceed 2 doses in 24 hours. 9 tablet 5 025 2025 Active hydrOXYzine HCL (ATARAX) 25 mg tablet Take 1 tablet (25 mg total) by mouth 2 (two) times a day if needed for itching. 60 tablet 2 025 Active amitriptyline (ELAVIL) 25 mg tabletIndicati ons:Fibromyalg ia TAKE 1 TABLET BY MOUTH TWICE A DAY 180 tablet 3 025 Active DULoxetine (CYMBALTA) [address] capsule TAKE 1 CAPSULE (20 MG TOTAL) BY MOUTH 2 (TWO) TIMES A DAY. DO NOT CRUSH OR CHEW. 180 capsule 1 025 Active clotrimazole-b etamethasone (LOTRISONE) 1-0.05 % cream Apply topically 2 (two) times a day. 30 g 1 025 Active empagliflozin (Jardiance) 25 mg tabletIndicati ons:Type 2 diabetes mellitus with diabetic microalbuminur ia, with long-term current use of insulin (CMS/HCC V24, CMS/HCC V28) Take 1 tablet (25 mg total) by mouth 1 (one) time each day. 90 tablet 3 025 Active cyclobenzaprin e (FLEXERIL) 10 mg tablet Take 1 tablet (10 mg total) by mouth 3 (three) times a day if needed for muscle spasms. 025 Active tirzepatide (Mounjaro) 15 mg/0.5 mL injectionIndic ations:Type 2 diabetes mellitus with other kidney complication, unspecified whether fdc insulin use [place] [place] [facility] [place] INJECT 0.5 ML (15 MG) SUBCUTANEOUSLY EVERY 7 DAYS 2 mL 11 025 Active citalopram (CeleXA) 10 mg tablet TAKE 1 TABLET BY MOUTH EVERY DAY 90 tablet 3 025 Active citalopram (CeleXA) 10 mg tablet Take 1 Tablet by mouth daily. 024 2024 Discontinued Mounjaro 15 mg/0.5 mL injection INJECT 15 MG INTO THE SKIN EVERY 7 DAYS. 2 mL 5 025 2024 Discontinued(R eorder) tirzepatide (Mounjaro) 15 mg/0.5 mL injectionIndic ations:Type 2 diabetes mellitus with other kidney complication, unspecified whether fdc insulin use ([facility] [place], [facility] [place]) Inject 0.5 mL (15 mg total) under the skin every 7 (seven) days. 2 mL 11 025 2024 Discontinued Active Problems Problem Noted Date Diagnosed Date Type II diabetes mellitus with renal manifestati ons 12/03/2023 Swallowing difficulty 12/03/2023 Primary hypertension 12/03/2023 Overview (12/03/2023): Last Assessment & Plan: Increase carvedilol to 25 mg twice a day. Hyperlipidemia 12/03/2023 Overview (12/03/2023): Last Assessment & Plan: LDL is at target. Triglyceride remain elevated. I will start fenofibrate at a lower dose. Had a discussion about weight loss and eating habit change. Globus sensation 12/03/2023 GERD (gastroesophageal reflux disease) Fibromyalgia 12/03/2023 Overview (12/03/2023): Gabapentin caused weight gain - ~ 2013 Lygwyna made her more anxious Cymbalta 2018; Lexapro added 10/06 Elevated liver enzymes 12/03/2023 Early satiety 12/03/2023 Abnormal large bowel motility 12/03/2023 Anxiety and depression 12/03/2023 Morbid obesity with BMI of 40.0-44.9, adult 11/17 Nontoxic multinodular goiter 05/03/2022 Shortness of breath [...] Encounters Date Type Department Care Team Description 01/07/2025 Results Follow-Up Internal Medicine - [address] [phone] Akanksha Oh MD 01/07/2025 Results Follow-Up Endocrinology - [address] [phone] Salud Vasquez PA 01/06/2025 11:55 AM EST Lab Draw Station - [address] Type 2 diabetes mellitus with other kidney complication, unspecified whether fdc insulin use ([facility] V24, [facility] V28); Type 2 diabetes mellitus with diabetic microalbuminuria, without long-term current use of insulin ([facility] [place], [facility] V28); Hyperlipidemia, unspecified hyperlipidemia type; Fatty liver 01/06/2025 11:15 AM EST Office Visit Endocrinology - [address] [phone] Salud Vasquez PA Type 2 diabetes mellitus with other kidney complication, unspecified whether fdc insulin use ([facility] V24, [facility] V28) (Primary Dx); Primary hypertension; Hyperlipidemia, unspecified hyperlipidemia type; Type 2 diabetes mellitus with diabetic microalbuminuria, with long-term current use of insulin ([facility] [place], [facility] V28) 10/29/2024 11:00 AM EDT Office Visit Internal Medicine - [address] [phone] Akanksha Oh MD Other migraine without status migrainosus, not intractable (Primary Dx); Type 2 diabetes mellitus with diabetic microalbuminuria, without long-term current use of insulin ([facility] [place], [facility] V28); Hyperlipidemia, unspecified hyperlipidemia type; [...] History Date Comments Hypertension DX:Hypertension Diabetes mellitus ([facility] V 24, [facility] V28) DX:Diabetes mellitus (HCC) Fibromyalgia DX:Fibromyalgia Anxiety [...] 11:00 AM EST Appointment Radiology Department - [address] [phone] 05/02/2025 11:00 AM EDT Office Visit Internal Medicine - [address] [place] [phone] Akanksha Oh MD [address] [place] [phone] 08/03/2025 10:45 AM EDT Office Visit Endocrinology - [address] [phone] Salud Vasquez PA [address] [place] [address] Health Maintenance Due Date Last Done Comments Drug Screen 1968 Non-Opioid Controlled Substance Agreement 1968 Diabetes: Annual Foot Exam 1978 Hepatitis B [...] Annual Retina Eye Exam 03/03/2025 03/03/2024 Diabetes: Annual Urine Albumin-Creatinine Ratio (uACR) 04/22/2025 04/22/2024, 11/14/2022 Diabetes: Blood Sugar Control Test (HGBA1C) 07/06/2025 01/06/2025, 09/30/2024, 04/22/2024, Additional history exists Breast Cancer Screening 09/18/2025 09/19/19 24, 09/19/2023, [...] microalbuminuria, without long-term current use of insulin ([facility] V24, [facility] V28) Hyperlipidemia, unspecified hyperlipidemia type Fatty liver COMPLETE BLOOD COUNT Routine 01/06/2025 11:59 AM EST Type 2 diabetes mellitus with diabetic microalbuminuria, without long-term current use of insulin ([facility] V24, [facility] V28) Hyperlipidemia, unspecified hyperlipidemia type Fatty liver VITAMIN D 25 HYDROXY Routine 01/06/2025 11:59 AM EST Type 2 diabetes mellitus with diabetic microalbuminuria, without long-term current use of insulin ([facility] V24, [facility] V28) Hyperlipidemia, unspecified hyperlipidemia type Fatty liver HEMOGLOBIN A1C Routine 01/06/2025 11:59 AM EST Type 2 diabetes mellitus with other kidney complication, unspecified whether physician/internist insulin use ([facility] V24, [facility] V28) POC GLUCOSE Routine 01/06/2025 11:14 AM EST Type 2 diabetes mellitus with other kidney complication, unspecified whether physician/internist insulin use ([facility] [place], [facility] V28) MICROALBUMIN CREATININE URINE RATIO Routine 04/22/2024 10:54 AM EST Type 2 diabetes mellitus with other kidney complication, unspecified whether fdc insulin use ([facility] V24, [facility] V28) Microalbuminuria LIPID PANEL WITH REFLEX TO DIRECT LDL Routine 04/22/2024 10:54 AM EST Type 2 diabetes mellitus with other kidney complication, unspecified whether fdc insulin use ([facility] V24, [facility] V28) Hyperlipidemia, unspecified hyperlipidemia type SCREENING MAMMOGRAPHY [...] - 80.0 ng/mL 01/06/2025 3:39 PM EST [facility] Blood Venous blood specimen / Unknown Venipuncture / Unknown 01/06/2025 11:59 AM EST 01/06/2025 11:59 AM EST us Akanksha Oh MD LAB BLOOD ORDERABLES Final Res ult [facility] [address] [place] [address], [place] [phone] * (ABNORMAL) Complete blood count (01/06/2025 11:59 AM EST) [facility] WBC 8.5 4.8 - 10.8 K/mcL LAB HEMETOLOGY METHOD 01/06/2025 3:03 PM [facility] RBC 5.30(H) 3.80 - 4.80 M/mcL LAB HEMETOLOGY METHOD 01/06/2025 3:03 PM [facility] Hemoglobin 14.8 11.5 - 16.0 g/dL LAB HEMETOLOGY METHOD 01/06/2025 3:03 PM [facility] Hematocrit 46.5 35.0 - 47.0 % LAB HEMETOLOGY METHOD 01/06/2025 3:03 PM [facility] MCV 88.4 79.0 - 98.0 FL LAB HEMETOLOGY METHOD 01/06/2025 3:03 PM [facility] MCH 28.1 27.0 - 32.0 pcg LAB HEMETOLOGY METHOD 01/06/2025 3:03 PM [facility] MCHC 31.8(L) 32.0 - 37.0 g/dL LAB HEMETOLOGY METHOD 01/06/2025 3:03 PM [facility] RDW 14.4 11.0 - 15.0 % LAB HEMETOLOGY METHOD 01/06/2025 3:03 PM [facility] Platelets 394 130 - 400 K/mcL LAB HEMETOLOGY METHOD 01/06/2025 3:03 PM [facility] MPV 9.7 7.0 - 11.0 FL LAB HEMETOLOGY METHOD 01/06/2025 3:03 PM [facility] NRBC 0.0 <1.0 % LAB HEMETOLOGY METHOD 01/06/2025 3:03 PM [facility] NRBC Absolute 0.00 <0.10 K/mcL LAB HEMETOLOGY METHOD 01/06/2025 3:03 PM EST [facility] Blood Venous blood specimen / Unknown Venipuncture / Unknown 01/06/2025 11:59 AM EST 01/06/2025 11:59 AM EST us Akanksha Oh MD LAB BLOOD ORDERABLES Final Res ult Performing Organization Address City/[facility]/ZIP Co de Phone Number [facility] [address] [place] [address], [place] [phone] * (ABNORMAL) Hemoglobin A1c (01/06/2025 11:59 AM EST) Hemoglobin A1C 7.2(H) <6.5 % LAB CHEMISTRY METHOD 01/06/2025 9:17 PM EST [facility] Mean Bld Glu Estim. 160 mg/dL LAB CHEMISTRY METHOD 01/06/2025 9:17 PM [facility] Blood Venous blood specimen / Unknown Venipuncture / Unknown 01/06/2025 11:59 AM EST 01/06/2025 11:59 AM EST us Salud SOUZA LAB BLOOD ORDERABLES Final Result Performing Organization Address City/[facility]/ZIP Co de Phone Number [facility] [address] [place] [address], [place] [phone] * (ABNORMAL) Comprehensive metabolic panel (01/06/2025 11:59 AM EST) Sodium 143 133 - 145 mmol/L 01/06/2025 3:39 PM EST [facility] Potassium 4.4 3.5 - 5.5 mmol/L 01/06/2025 3:39 PM EST [facility] Chloride 105 96 - 110 mmol/L 01/06/2025 3:39 PM EST [facility] CO2 26 21 - 32 mmol/L 01/06/2025 3:39 PM EST [facility] Anion Gap 12(H) 3 - 11 01/06/2025 3:39 PM [facility] Glucose 118(H) 70 - 100 mg/dL 01/06/2025 3:39 PM [facility] BUN 17 5 - 25 mg/dL 01/06/2025 3:39 PM [facility] Creatinine 0.70 0.50 - 1.10 mg/dL 01/06/2025 3:39 PM [facility] eGFR 102 >=60 mL/min/1. 73m2 01/06/2025 3:39 PM [facility] Comment:Calculation based on the Chronic Kidney Disease Epidemiology Collaboration (CKD-EPI) equation refit without adjustment for race. BUN/Creatinine Ratio 24.3 01/06/2025 3:39 PM [facility] Calcium 9.2 8.5 - 10.5 mg/dL 01/06/2025 3:39 PM [facility] AST (SGOT) 22 10 - 42 unit/L 01/06/2025 3:39 PM [facility] ALT (SGPT) 25 10 - 60 unit/L 01/06/2025 3:39 PM [facility] Alkaline Phosphatase 112 42 - 121 unit/L 01/06/2025 3:39 PM [facility] Total Protein 6.8 6.0 - 8.0 g/dL 01/06/2025 3:39 PM [facility] Albumin 4.4 3.2 - 5.0 g/dL 01/06/2025 3:39 PM [facility] Total Bilirubin 1.0 0.0 - 1.4 mg/dL 01/06/2025 3:39 PM [facility] Blood Venous blood specimen / Unknown Venipuncture / Unknown 01/06/2025 11:59 AM EST 01/06/2025 11:59 AM EST us Akanksha Oh MD LAB BLOOD ORDERABLES Final Res ult [facility] [address] [place] [address], [place] [phone] * POC glucose manually resulted (01/06/2025 11:14 AM EST) Glucose POC 135 mg/dL Blood Capillary blood specimen / Unknown 01/06/2025 11:14 AM EST us Salud SOUZA POINT OF CARE TEST ENTER/ED IT ORDERABLES Final Result * (ABNORMAL) Lipid panel with reflex to direct LDL (04/22/2024 10:54 AM EST) Cholesterol 194 0 - 200 mg/dL LAB CHEMISTRY METHOD 04/22/2024 3:43 PM [facility] Triglycerides 175(H) 0 - 150 mg/dL LAB CHEMISTRY METHOD 04/22/2024 3:43 PM [facility] HDL 65 >=40 mg/dL LAB CHEMISTRY METHOD 04/22/2024 3:43 PM [facility] LDL Calculated 94 0 - 100 mg/dL LAB CHEMISTRY METHOD 04/22/2024 3:43 PM [facility] VLDL Cholesterol Jude 35 mg/dL LAB CHEMISTRY METHOD 04/22/2024 3:43 PM [facility] Non HDL Chol. (LDL+VLDL) 129 <145 mg/dL LAB CHEMISTRY METHOD 04/22/2024 3:43 PM [facility] Chol/HDL Ratio 3.0 0.0 - 4.4 LAB CHEMISTRY METHOD 04/22/2024 3:43 PM [facility] Blood Venous blood specimen / Unknown Venipuncture / Unknown 04/22/2024 10:54 AM EST 04/22/2024 10:54 AM EST Salud SOUZA LAB BLOOD ORDERABLES Final Result Performing Organization Address City/[facility]/ZIP Co de Phone Number [facility] [address] [place] [address], [place] [phone] * Microalbumin creatinine urine ratio (04/22/2024 10:54 AM EST) Creatinine, Urine 80.0 mg/dL LAB CHEMISTRY METHOD 04/22/2024 2:59 PM EST [facility] Microalb, Ur 8.7 0.0 - 29.0 mg/L LAB CHEMISTRY METHOD 04/22/2024 2:59 PM EST [facility] Microalb/Creat Ratio 11 <30 mg/g creat LAB CHEMISTRY METHOD 04/22/2024 2:59 PM EST [facility] Urine Urine specimen from urethra / Unknown Non-blood Collection / Unknown 04/22/2024 10:54 AM EST 04/22/2024 10:54 AM EST Salud SOUZA LAB URINE ORDERABLES Final Result Performing Organization Address [facility] Co de Phone Number [facility] [address] [place] [address], [place] [phone] * SCREENING MAMMOGRAPHY BI 2-VIEW BREAST INC [...] PROCEDURES Final Result * Depression Screening (03/07/2023) [facility] Depression Screening Abstracted [facility] Provider HEALTH MAINTENANCE Final Result * Colonoscopy (10/22/2022) [facility] Colonoscopy Abstracted, No interpretation Anatomical Region Laterality Modality Other Result [facility] Provider HEALTH MAINTENANCE Final Result * Hepatitis C Screening (06/20/2020) [facility] Hepatitis C Screening Abstracted [facility] Provider HEALTH MAINTENANCE Final Result from Last 3 Months or Most Recently Relevant to Health Maintenance Insurance [facility] [employer] IP PLANS Advance Directives Documents on File Type Date Recorded Patient Wellness Specialist Expl anation Health Care Decision (hx) 07/22/2020 [...] (hx) 07/22/2020 AD DOMÍNGUEZ DIRECTIVE Care Teams Substation Electrician Supervisor Relationship Specialty Start Date End Date Akanksha Oh MD [address] [place] [phone] PCP - General Internal Medicine 02/01/21
--- OUTSIDE RECORDS SUMMARY | 2025-01-26 18:07 | XMS_ITS | Encounter Summary ---
Author Organization [facility] Address [address] [place] [address] Phone Care Team Providers Care Customer Resolution Specialist Name Role Phone Sid Redman MD Unavailable [phone] Mundo Garrido MD Unavailable Geoff Garrison MD Unavailable [phone]CS Unavailable [email or web address] Amina Alvarez MD Unavailable [phone] Viky Almaraz Primary Care Provider [phone] Encounter Details Date Type Department Care Team (Late st Contact Info) Description 01/28/2017 Ancillary Orders [facility] External Provider Virtual Department [address] [place] [address] Ilene Wright MD [address] [place] [phone] [email or web address] Chest pain, unspecified type Social History Tobacco [...] PM EST) Max BP Systolic 170 mmHg [facility] Max BP Diastolic 90 mmHg [facility] Max HR 150 BPM [facility] Resting HR 105 BPM [facility] Resting BP Systolic 140 mmHg [facility] Resting BP Diastolic 90 mmHg [facility] Peak METS 7.0 METS [facility] Peak HR 150 BPM [facility] Anatomical Region Laterality Modality Heart Other 01/30/2017 [...] type documented in this encounter Care Teams Customer Resolution Specialist Relationship Specialty Start Date End Date Viky Almaraz PA [address] [place] [address] [phone] PCP - General [place] Compounder 01/27/17 Sid Redman MD [address] [place] [phone] Historical LMR Provider 12/02/16 2 Mundo Garrido MD [address] [place] [address] [address] [place] [address] [email or web address] Historical LMR Provider 12/02/16 02/24/21 Geoff Garrison MD [address] [place] [address] [address] [place] [address] Historical LMR Provider 12/02/16 02/24/21 Elicia Hodge, [facility] Historical LMR Provider 12/02/16 02/24/21 Amina Alvarez MD [address] [place] [phone] Historical LMR Provider 12/02/16 2 documented as of this encounter Additional Source Comments The information contained in this document represents components of the legal health record. It is not the complete legal health record.[facility]
--- OUTSIDE RECORDS SUMMARY | 2025-01-26 18:07 | XMS_ITS | Encounter Summary ---
Author Organization [facility] Address [address] [place], [place] [id number] Phone Care Team Providers Care Adult Day Care Worker Name Role Phone Sid Redman MD Unavailable [phone] Mundo Garrido MD Unavailable Geoff Garrison MD Unavailable [phone] Elicia Hodge RDCS Unavailable [email or web address] Amina Alvarez MD Unavailable [phone] Viky Almaraz Primary Care Provider [phone] Encounter Details Date Type Department Care Team (Late st Contact Info) Description 01/27/2017 Transcribe Orders [facility] Main [address] [place] [address] Ilene Wright MD [address] [place] [address] [id number] [email or web address] Chest pain, unspecified type (Primary Dx) Social [...] EST) WBC 8.56 3.40 - 11.20 K/uL [facility] RBC 4.74 3.80 - 4.80 M/uL [facility] HGB 13.5 12.0 - 15.0 g/dL [facility] HCT 40.5 36.0 - 46.0 % [facility] PLT 391 130 - 400 K/uL [facility] MCV 85.4 79.0 - 98.0 fL [facility] MCH 28.5 27.0 - 34.8 pg [facility] MCHC 33.3 31.5 - 36.0 g/dL [facility] RDW 13.3 10.8 - 14.6 % [facility] MPV 10.0 9.4 - 12.4 fl [facility] NRBC 0.00 /100 WBCs [facility] ABSOLUTE NRBC 0.00 K/uL [facility] Blood 01/27/2017 1:14 PM EST 01/27/2017 1:17 PM EST Ilene Hui MD LAB BLOOD BKR LESA ZENDEJAS Final Result [address] [address] * (ABNORMAL) Basic metabolic panel (01/27/2017 1:14 PM EST) SODIUM 143 133 - 146 mmol/L [facility] CHLORIDE 102 96 - 108 mmol/L [facility] POTASSIUM 4.0 3.3 - 5.1 mmol/L [facility] CO2 26 21 - 35 mmol/L [facility] BUN 12 6 - 19 mg/dL [facility] CREATININE <0.50(L) 0.5 - 1.5 mg/dL [facility] GLUCOSE 124(H) 70 - 99 mg/dL [facility] CALCIUM 9.2 8.4 - 10.3 mg/dL [facility] EGFR Test Not Performed. 60 - 1000 mL/min/1.7 3m2 [facility] Comment:Abnormal if <60. If patient is -Greenlandic, multiply the result by 1.21. ANION GAP 19 10 - 20 mmol/L [facility] Blood 01/27/2017 1:14 PM EST 01/27/2017 1:17 PM EST Ilene Hui MD LAB BLOOD BKR ORDLew ZENDEJAS Final Result [address] [address] * Troponin (01/27/2017 1:14 PM EST) TROPONIN-T <0.01 0 - 0.03 ng/mL [facility] Blood 01/27/2017 1:14 PM EST 01/27/2017 1:17 PM EST Ilene Hui MD LAB BLOOD BKR ORDLew ZENDEJAS Final Result Performing Organization Address City/[facility]/ZIP Co de Phone Number [address] [address] documented in this encounter Visit Diagnoses Diagnosis Chest pain, unspecified type- Primary documented in this encounter Care Teams Adult Day Care Worker Relationship Specialty Start Date End Date Viky Almaraz PA [address] [place] [address] [place] [phone] PCP - General [employer] Platemaker 01/27/17 Sid Redman MD [address] [place] [phone] Historical LMR Provider 12/02/16 2 Mundo Garrido MD [address] [place] [address], [address] [place] [address] [email or web address] Historical LMR Provider 12/02/16 02/24/21 Geoff Garrison MD [facility] [address] [place] [address] Historical LMR Provider 12/02/16 02/24/21 Elicia Hodge, [facility] [email or web address] Historical LMR Provider 12/02/16 02/24/21 Amina Alvarez MD [address] [place] [phone] Historical LMR Provider 12/02/16 2 documented as of this encounter Additional Source Comments The information contained in this document represents components of the legal health record. It is not the complete legal health record.[facility]
--- OUTSIDE RECORDS SUMMARY | 2025-01-26 18:07 | XMS_ITS | Clinical Summary ---
Author Organization [facility] Address [address] [place] [address] Phone Care Team Providers Care Licsw Name Role Phone Viky Almaraz Primary Care Provider [phone] Medications FLUoxetine (PROZAC) 20 MG capsule Take [...] O O O O O Care Teams Licsw Relationship Specialty Start Date End Date Viky Almaraz PA [address] [place] [address] [place] [phone] PCP - General Director Of Preclinical Research 01/27/17 Additional Source Comments The information contained in this document represents components of the legal health record. It is not the complete legal health record.[facility]
--- OUTSIDE RECORDS SUMMARY | 2025-01-26 18:07 | XMS_ITS | Encounter Summary ---
Author Organization [facility] Address [address] [place] [address] Phone Care Team Providers Care Methodologist Name Role Phone Sid Redman MD Unavailable [phone] Mundo Garrido MD Unavailable Geoff Garrison MD Unavailable [phone] Elicia Hodge RDCS Unavailable [email or web address] Amina Alvarez MD Unavailable [phone] Viky Almaraz Primary Care Provider [phone] Encounter Details Date Type Department Care Team (Late st Contact Info) Description 02/11/2017 Ancillary Orders Virtual Department [address] [place] [address] Viky Almaraz PA [address] [place] [phone] Chest pain, unspecified type Social History Tobacco [...] type documented in this encounter Care Teams Methodologist Relationship Specialty Start Date End Date Viky Almaraz PA [address] [place] [phone] PCP - General Net Development Manager 01/27/17 Sid Redman MD [address] [place] [address] Historical LMR Provider 12/02/16 2 Mundo Garrido MD [address] [place] [address] [address] [place] [address] [email or web address] Historical LMR Provider 12/02/16 02/24/21 Geoff Garrison MD [address] [place] [address] [address] [place] [address] [email or web address] Historical LMR Provider 12/02/16 02/24/21 Elicia Hodge, RDCS [email or web address] Historical LMR Provider 12/02/16 02/24/21 Amina Alvarez MD [address] [place] [phone] Historical LMR Provider 12/02/16 2 documented as of this encounter Additional Source Comments The information contained in this document represents components of the legal health record. It is not the complete legal health record.[facility]
--- OUTSIDE RECORDS SUMMARY | 2025-01-26 18:08 | XMS_ITS | Encounter Summary ---
Author Organization [employer] Address [address] [place] [address] Care Team Providers Care International Relations Teacher Name Role Phone Akanksha Oh MD Primary Care Provider [phone] Encounter Details Date Type Department Care Team ([facility] Contact Info) Description 01/07/2025 Results Follow-Up Internal Medicine [facility] [address] [phone] Akanksha Oh MD [address] [place] [address] Social History Tobacco Use Types Packs/Day Years [...] Upcoming Encounters Date Type Department Care Team ([facility] Contact Info) Description 02/03/2025 11:00 AM EST Appointment Radiology Department [address] [phone] 05/02/2025 11:00 AM EDT Office Visit Internal Medicine [facility] [address] [phone] Akanksha Oh MD [address] [place] [address] 08/03/2025 10:45 AM EDT Office Visit Endocrinology - [address] [phone] Salud Vasquez PA [address] [place] [address] documented as of this encounter Visit Diagnoses Not on filedocumented in this encounter Care Teams International Relations Teacher Relationship Specialty Start Date End Date Akanksha Oh MD [address] [place] [phone] PCP - General Internal Medicine 02/01/21 documented as of this encounter
--- OUTSIDE RECORDS SUMMARY | 2025-01-26 18:08 | XMS_ITS | Encounter Summary ---
Author Organization [facility] Address [address] [place] [address] Care Team Providers Care Contact Center Professional Name Role Phone Akanksha Oh MD Primary Care Provider Encounter Details Date Type Department Care Team (Late Contact Info) Description 01/07/2025 Results Follow-Up Endocrinology - [address] [phone] Salud Vasquez PA [address] [place] [address] Social History Tobacco Use Types Packs/Day Years [...] Encounters Date Type Department Care Team (Late Contact Info) Description 02/03/2025 11:00 AM EST Appointment Radiology Department - [address] [phone] 05/02/2025 11:00 AM EDT Office Visit Internal Medicine [address] [place] [phone] Akanksha Oh MD [address] [place] [phone] 08/03/2025 10:45 AM EDT Office Visit Endocrinology - [address] [phone] Salud Vasquez PA [address] [place] [address] documented as of this encounter Visit Diagnoses Not on filedocumented in this encounter Care Teams Contact Center Professional Relationship Specialty Start Date End Date Akanksha Oh MD [address] [place] [phone] PCP - General Internal Medicine 02/01/21 documented as of this encounter
== END 2025-01-26 11:17 | disposition home or self-care (01) ==
LOC: HO.LAB 11:16
PROVIDERS: PCP Internal Medicine; Visit Provider Surgery
DX: E11.69 Type 2 diabetes mellitus with other specified complication (principal); K21.9 Gastro-esophageal reflux disease without esophagitis; E66.9 Obesity, unspecified; E78.5 Hyperlipidemia, unspecified; I10 Essential (primary) hypertension; Z68.33 Body mass index [BMI] 33.0-33.9, adult
CPT/HCPCS: 36415; 80053; 80061; 82306; 82607; 82728; 82746; 83036; 83525; 83540; 84425; 84443; 84590; 84630; 85025; 86140; 93005

== ENCOUNTER → 2025-01-26 11:20 | Outpatient (BNV) | payer OTHER, SELFPAY | PROVIDERS: PCP Internal Medicine; Visit Provider Internal Medicine Cardiovascular Disease | DX: E66.01 Morbid (severe) obesity due to excess calories (principal); Z68.39 Body mass index [BMI] 39.0-39.9, adult | CPT/HCPCS: 93010 ==